=== PATIENT | female | born 1940 ===

== ENCOUNTER 2017-02-18 16:48 | Inpatient (IN) | payer MEDICARE, OTHER ==
[~2017-02-18] VITALS: Ht 165.1 cm; Wt 61.8 kg
[2017-02-18 18:43] VITALS: BP 168/81
[2017-02-18] MEDS ORDERED: CYCL1DRO OU (19:38)
[2017-02-18] MEDS ORDERED: POLY119P4 PO (19:38)
[2017-02-18] MEDS ORDERED: BISA5TAB4 PO (19:38)
[2017-02-18] MEDS ORDERED: ATOR10TA60 PO (19:38)
[2017-02-18] MEDS ORDERED: QUET50TA5 PO (19:38)
[2017-02-18] MEDS ORDERED: ASPI81TA50 PO (19:38)
[2017-02-18] MEDS ORDERED: FOLI0.4T2 PO (19:38)
[2017-02-18] MEDS ORDERED: MULT-658 PO (19:38)
[2017-02-18] MEDS ORDERED: OMEG-33 PO (19:38)
[2017-02-18] MEDS ORDERED: DONE10TA61 PO (19:38)
[2017-02-18] MEDS ORDERED: LINA290C PO (19:38)
[2017-02-18] MEDS ORDERED: CHOL10003 PO (19:38)
[2017-02-18] MEDS ORDERED: ACET325T9 PO (19:38)
[2017-02-18] MEDS ORDERED: CYAN500T PO (19:38)
[2017-02-18] MEDS ORDERED: MELA1TAB2 PO (19:38)
[2017-02-18] MEDS ORDERED: LOPE2TAB27 PO (19:38)
[2017-02-18] MEDS ORDERED: LEVO25TA4 PO (19:38)
[2017-02-18] MEDS ORDERED: ALPR0.254 PO (19:38)
[2017-02-18] MEDS ORDERED: CALC1TAB64 PO (19:38)
[2017-02-18] MEDS ORDERED: MAG HYDROX/AL HYDROX/SIMETH 30 ML ORAL.SUSP PO PRN (19:45)
[2017-02-18] MEDS ORDERED: ACETAMINOPHEN 325 MG TABLET PO PRN (19:45)
[2017-02-18] MEDS ORDERED: METHYL SALICYLATE/MENTHOL TOPICAL OINTMENT 29GM TUBE. TP PRN (19:45)
[2017-02-18] MEDS ORDERED: ALPRAZolam 0.25 MG TABLET PO PRN (19:45)
[2017-02-18] MEDS ORDERED: LOPERAMIDE 2 MG CAPSULE PO PRN (20:00)
[2017-02-18] MEDS ORDERED: BISACODYL TAB 5 MG TABLET.DR. PO PRN (20:00)
[2017-02-18] MEDS ORDERED: POLYETHYLENE GLYCOL 3350 255 GM POWDER. PO PRN (20:00)
[2017-02-18] MEDS: DONEPEZIL HCL 10 MG TABLET PO SCH (20:08)
[2017-02-18] MEDS: MELATONIN 3 MG TABLET PO SCH (20:09)
[2017-02-18] MEDS: cycloSPORINE 0.05% OPTH 1 DROP DROPERETTE OU SCH (20:09)
[2017-02-18] MEDS: ATORVASTATIN CALCIUM 10 MG TABLET. PO SCH (20:09)
[2017-02-18] MEDS: QUEtiapine 50 MG TABLET. PO SCH (20:09)
--- NOTE | 2017-02-18 23:21 | PDOC ---
Exam Alonso Demential Exam: Alonso Note: Please also refer to the separate dictated note~for this date of service dictated separately.~Patient seen individually. Discussed the patient with Nursing staff reviewed the chart.~Reviewed interim history and current functioning. Reviewed vital signs,~Labs/ Radiology~and current medications noted below. Continue current treatment with the changes noted in the dictated addendum note Assessment: Vital Signs: Vital Signs Date Time Temp Pulse Resp B/P (MAP) Pulse Ox O2 Delivery O2 Flow Rate FiO2 02/18/17 18:43 98.1 84 20 168/81 (110) 95 Room Air I&O Intake and Output 02/19/17 06:59 Intake Total 120 ml Balance 120 ml Intake Oral 120 ml Current Medications: Meds: Current Medications Acetaminophen (Tylenol) 650 mg PRN Q6HRS PRN PO PAIN / TEMP; Start 02/18/17 at 19:45 Multi-Ingredient Ointment (Analgesic [place]) 1 kevin PRN QID PRN TP MUSCLE PAIN; Start 02/18/17 at 19:45 Al Hydroxide/Mg Hydroxide (Mylanta Plus Xs) 15 ml PRN AFTMEALHC PRN PO DYSPEPSIA; Start 02/18/17 at 19:45 Magnesium Hydroxide (Milk Of Magnesia) 2,400 mg PRN QHS PRN PO CONSTIPATION; Start 02/18/17 at 19:45 Alprazolam (Xanax) 0.25 mg PRN TID PRN PO ANXIETY / AGITATION; Start 02/18/17 at 19:45 Donepezil HCl (Aricept) 10 mg QHS PO Last administered on 02/18/17 20:08; Start 02/18/17 at 21:00 Quetiapine Fumarate (SEROquel) 50 mg BID PO Last administered on 02/18/17 20:09 ; Start 02/18/17 at 21:00 Melatonin 9 mg QHS PO Last administered on 02/18/17 20:09; Start 02/18/17 at 21: 00 Olanzapine (ZyPREXA ZYDIS) 5 mg PRN Q2HR PRN PO Psych; Start 02/18/17 at 19:45 Aspirin (Aspirin Enteric Coated) 81 mg DAILY PO ; Start 02/19/17 at 09:00 Atorvastatin Calcium (Lipitor) 10 mg QHS PO Last administered on 02/18/17 20:09 ; Start 02/18/17 at 21:00 Bisacodyl (Dulcolax Tab) 10 mg PRN DAILY PRN PO CONSTIPATION; Start 02/18/17 at 20:00 Vitamin D (Vitamin D3) 1,000 unit DAILY PO ; Start 02/19/17 at 09:00 Cyclosporine (Restasis) 1 drop BID OU Last administered on 02/18/17 20:09; Start 02/18/17 at 21:00 Levothyroxine Sodium (Synthroid) 25 mcg DAILY07 PO ; Start 02/19/17 at 07:00 Polyethylene Glycol (miraLAX) 17 gm PRN DAILY PRN PO CONSTIPATION; Start at 20:00 Calcium/Vitamin D (Oscal D 500mg/ 200uts) 1 tab DAILY PO ; Start 02/19/17 at 09: 00 Cyanocobalamin (Vitamin B-12) 500 mcg DAILY PO ; Start 02/19/17 at 09:00 Folic Acid (Folic Acid) 0.5 mg DAILY PO ; Start 02/19/17 at 09:00 Non-Formulary Medication 290 mcg DAILYWBKFT PO ; Start 02/19/17 at 08:00; Status UNV Loperamide HCl (Imodium) 2 mg PRN TID PRN PO DIARRHEA; Start 02/18/17 at 20:00 Multivitamins/ Calcium (Thera-M Plus) 1 tab DAILY PO ; Start 02/19/17 at 09:00 Fish Oil (Fish Oil) 1,000 mg DAILY PO ; Start 02/19/17 at 09:00 Active Scripts Active Reported Levothyroxine Sodium 25 Mcg Tablet 25 Mcg PO DAILY07 Miralax (Polyethylene Glycol 3350) 119 Gm Powder 17 Gm PO PRN DAILY PRN Loperamide (Loperamide Hcl) 2 Mg Tablet 2 Mg PO PRN TID PRN Bisacodyl 5 Mg Tablet.dr 10 Mg PO PRN DAILY PRN Alprazolam 0.25 Mg Tablet 0.25 Mg PO PRN TID PRN Tylenol (Acetaminophen) 325 Mg Tablet 650 Mg PO PRN Q4HRS PRN Seroquel (Quetiapine Fumarate) 50 Mg Tablet 50 Mg PO BID [place] 3 1,000 Mg Softgel ([place]-3 Fatty Acids/Fish Oil) 1 Each Capsule 1,000 Mg PO DAILY Centrum Silver Tablet (Multivits-Min/Fa/Lycopene/Lut) 1 Each Tablet 1 Tab PO DAILY Melatonin 5 Mg Tablet (Melatonin/Pyridoxine) 1 Each Tablet 10 Mg PO QHS Linzess (Linaclotide) 290 Mcg Capsule 290 Mcg PO DAILYWBKFT Folic Acid 0.4 Mg Tablet 0.4 Mg PO DAILY Aricept (Donepezil Hcl) 10 Mg Tablet 10 Mg PO QHS Restasis (Cyclosporine) 1 Each Droperette 1 Drop OU BID Vitamin B-12 (Cyanocobalamin (Vitamin B-12)) 500 Mcg Tablet 500 Mcg PO DAILY Vitamin D3 (Cholecalciferol (Vitamin D3)) 1,000 Unit Tablet 1,000 Unit PO DAILY Calcium 600 + Vit D 400 Tablet (Calcium Carbonate/Vitamin D3) 1 Each Tablet 1 Tab PO DAILY Atorvastatin Calcium 10 Mg Tablet 10 Mg PO QHS Aspir-Low (Aspirin) 81 Mg Tablet. 81 Mg PO DAILY AURELIANO MCCAULEY MD Feb 18, 2017 23:21
[2017-02-19] MEDS: LEVOTHYROXINE 25 MCG TABLET. PO SCH (06:21)
[2017-02-19] MEDS ORDERED: POLYETHYLENE GLYCOL 3350 17 GM PACKET. PO PRN (07:15)
[2017-02-19 08:10] LABS: BASO # 0.1 x10^3/uL (0.0-0.2); BASO % 1 % (0-3); EOS # 0.2 x10^3/uL (0.0-0.7); EOS % 4 % (0-3); HEMATOCRIT 38.9 % (36.0-47.0); HEMOGLOBIN 12.8 g/dL (12.0-15.5); LYMPH % 16 % (24-48); MEAN CORPUSCULAR HEMOGLOBIN 34 pg (25-35); MEAN CORPUSCULAR HGB CONC 33 g/dL (31-37); MEAN CORPUSCULAR VOLUME 103 fL (79-100); MONO # 0.7 x10^3/uL (0.0-1.1); MONO % 10 % (0-9); NEUT # 4.7 x10^3uL (1.8-7.7); NEUT % 70 % (31-73); PLATELET COUNT 298 x10^3/uL (140-400); RED BLOOD COUNT 3.78 x10^6/uL (3.50-5.40); RED CELL DISTRIBUTION WIDTH 12.6 % (11.5-14.5); WHITE BLOOD COUNT 6.7 x10^3/uL (4.0-11.0)
[2017-02-19 08:30] LABS: ALBUMIN 3.7 g/dL (3.4-5.0); CALCIUM 8.7 mg/dL (8.5-10.1); CREATININE 0.8 mg/dL (0.6-1.0); GFR 69.4; MAGNESIUM 2.1 mg/dL (1.8-2.4); POTASSIUM 3.7 mmol/L (3.5-5.1); TOTAL BILIRUBIN 0.4 mg/dL (0.2-1.0); TOTAL PROTEIN 7.3 g/dL (6.4-8.2)
[2017-02-19] MEDS: FOLIC ACID 1 MG TABLET PO SCH (08:57)
[2017-02-19] MEDS: QUEtiapine 50 MG TABLET. PO SCH ×2 (08:57→21:04)
[2017-02-19 09:29] VITALS: BP 174/72
[2017-02-19] MEDS: OMEGA-3 FATTY ACIDS/FISH OIL 1,000 MG CAPSULE. PO SCH (09:47)
[2017-02-19] MEDS: cycloSPORINE 0.05% OPTH 1 DROP DROPERETTE OU SCH ×2 (09:47→21:04)
[2017-02-19] MEDS: LINACLOTIDE 145 MCG CAPSULE. PO SCH (09:47)
[2017-02-19] MEDS: ASPIRIN ENTERIC COATED 81 MG TABLET.DR. PO SCH (09:47)
[2017-02-19] MEDS: CALCIUM CARB/VIT D3 500/200 TABLET PO SCH (09:47)
[2017-02-19] MEDS: MULTIVITAMIN with MINERAL TABLET. PO SCH (09:47)
[2017-02-19] MEDS: CHOLECALCIFEROL (VITAMIN D3) 1,000 UNIT TABLET PO SCH (09:48)
[2017-02-19] MEDS: CYANOCOBALAMIN (VITAMIN B-12) 250 MCG TABLET PO SCH (09:48)
[2017-02-19 10:10] LABS: THYROID STIM HORMONE (TSH) 10.023 uIU/mL (0.358-3.740)
[2017-02-19 11:02] VITALS: BP 149/78
[2017-02-19 12:09] LABS: T3 TOTAL 101 ng/dL (71-180); THYROXINE 7.8 ug/dL (4.5-12.0)
[2017-02-19 15:48] VITALS: BP 180/86
[2017-02-19] MEDS: MELATONIN 3 MG TABLET PO SCH (21:04)
[2017-02-19] MEDS: DONEPEZIL HCL 10 MG TABLET PO SCH (21:04)
[2017-02-19] MEDS: ATORVASTATIN CALCIUM 10 MG TABLET. PO SCH (21:04)
--- NOTE | 2017-02-19 21:50 | PDOC ---
Exam Alonso Demential Exam: Alonso Note: Please also refer to the separate dictated note~for this date of service dictated separately.~Patient seen individually. Discussed the patient with Nursing staff reviewed the chart.~Reviewed interim history and current functioning. Reviewed vital signs,~Labs/ Radiology~and current medications noted below. Continue current treatment with the changes noted in the dictated addendum note Assessment: Vital Signs: Vital Signs Date Time Temp Pulse Resp B/P (MAP) Pulse Ox O2 Delivery O2 Flow Rate FiO2 02/19/17 15:48 96.9 95 22 180/86 (117) 97 02/18/17 18:43 Room Air I&O Intake and Output 02/20/17 06:59 Intake Total 720 ml Balance 720 ml Intake Oral 720 ml Labs: Laboratory Tests Test 02/19/17 06:40 White Blood Count 6.7 x10^3/uL (4.0-11.0) Red Blood Count 3.78 x10^6/uL (3.50-5.40) Hemoglobin 12.8 g/dL (12.0-15.5) Hematocrit 38.9 % (36.0-47.0) Mean Corpuscular Volume 103 fL (79-100) H Mean Corpuscular Hemoglobin 34 pg (25-35) Mean Corpuscular Hemoglobin Concent 33 g/dL (31-37) Red Cell Distribution Width 12.6 % (11.5-14.5) Platelet Count 298 x10^3/uL (140-400) Neutrophils (%) (Auto) 70 % (31-73) Lymphocytes (%) (Auto) 16 % (24-48) L Monocytes (%) (Auto) 10 % (0-9) H Eosinophils (%) (Auto) 4 % (0-3) H Basophils (%) (Auto) 1 % (0-3) Neutrophils # (Auto) 4.7 x10^3uL (1.8-7.7) Lymphocytes # (Auto) 1.0 x10^3/uL (1.0-4.8) Monocytes # (Auto) 0.7 x10^3/uL (0.0-1.1) Eosinophils # (Auto) 0.2 x10^3/uL (0.0-0.7) Basophils # (Auto) 0.1 x10^3/uL (0.0-0.2) Sodium Level 135 mmol/L (136-145) L Potassium Level 3.7 mmol/L (3.5-5.1) Chloride Level 99 mmol/L (98-107) Carbon Dioxide Level 30 mmol/L (21-32) Anion Gap 6 (6-14) Blood Urea Nitrogen 17 mg/dL (7-20) Creatinine 0.8 mg/dL (0.6-1.0) Estimated GFR (Cockcroft-Gault) 69.4 BUN/Creatinine Ratio 21 (6-20) H Glucose Level 96 mg/dL (70-99) Calcium Level 8.7 mg/dL (8.5-10.1) Magnesium Level 2.1 mg/dL (1.8-2.4) Iron Level 54 ug/dL (50-170) Total Iron Binding Capacity 384 ug/dL (250-450) Iron Saturation 14 % (15-34) L Total Bilirubin 0.4 mg/dL (0.2-1.0) Aspartate Amino Transferase (AST) 23 U/L (15-37) Alanine Aminotransferase (ALT) 20 U/L (14-59) Alkaline Phosphatase 71 U/L (46-116) Total Protein 7.3 g/dL (6.4-8.2) Albumin 3.7 g/dL (3.4-5.0) Albumin/Globulin Ratio 1.0 (1.0-1.7) Triglycerides Level 73 mg/dL (0-150) Cholesterol Level 214 mg/dL (0-200) H LDL Cholesterol, Calculated 77 mg/dL (0-100) VLDL Cholesterol, Calculated 14 mg/dL (0-40) Non-HDL Cholesterol Calculated 91 mg/dL (0-129) HDL Cholesterol 123 mg/dL (40-60) H Cholesterol/HDL Ratio 1.0 25-Hydroxy Vitamin D Total Pending Thyroid Stimulating Hormone (TSH) 10.023 uIU/mL (0.358-3.740) Thyroxine (T4) 7.8 ug/dL (4.5-12.0) Total Triiodothyronine (TT3) 101 ng/dL (71-180) RPR Titer Additional Testing Pending Current Medications: Meds: Current Medications Acetaminophen (Tylenol) 650 mg PRN Q6HRS PRN PO PAIN / TEMP; Start 02/18/17 at 19:45 Multi-Ingredient Ointment (Analgesic [place]) 1 kevin PRN QID PRN TP MUSCLE PAIN; Start 02/18/17 at 19:45 Al Hydroxide/Mg Hydroxide (Mylanta Plus Xs) 15 ml PRN AFTMEALHC PRN PO DYSPEPSIA; Start 02/18/17 at 19:45 Magnesium Hydroxide (Milk Of Magnesia) 2,400 mg PRN QHS PRN PO CONSTIPATION; Start 02/18/17 at 19:45 Alprazolam (Xanax) 0.25 mg PRN TID PRN PO ANXIETY / AGITATION; Start 02/18/17 at 19:45 Donepezil HCl (Aricept) 10 mg QHS PO Last administered on 02/19/17 21:04; Start 02/18/17 at 21:00 Quetiapine Fumarate (SEROquel) 50 mg BID PO Last administered on 02/19/17 21:04 ; Start 02/18/17 at 21:00 Melatonin 9 mg QHS PO Last administered on 02/19/17 21:04; Start 02/18/17 at 21: 00 Olanzapine (ZyPREXA ZYDIS) 5 mg PRN Q2HR PRN PO Psych; Start 02/18/17 at 19:45 Aspirin (Aspirin Enteric Coated) 81 mg DAILY PO ; Start 02/19/17 at 09:00 Atorvastatin Calcium (Lipitor) 10 mg QHS PO Last administered on 02/19/17 21:04 ; Start 02/18/17 at 21:00 Bisacodyl (Dulcolax Tab) 10 mg PRN DAILY PRN PO CONSTIPATION; Start 02/18/17 at 20:00 Vitamin D (Vitamin D3) 1,000 unit DAILY PO ; Start 02/19/17 at 09:00 Cyclosporine (Restasis) 1 drop BID OU Last administered on 02/19/17 21:04; Start 02/18/17 at 21:00 Levothyroxine Sodium (Synthroid) 25 mcg DAILY07 PO Last administered on 06:21; Start 02/19/17 at 07:00 Polyethylene Glycol (miraLAX) 17 gm PRN DAILY PRN PO CONSTIPATION; Start at 20:00; Stop 02/19/17 at 07:15; Status DC Calcium/Vitamin D (Oscal D 500mg/ 200uts) 1 tab DAILY PO ; Start 02/19/17 at 09: 00 Cyanocobalamin (Vitamin B-12) 500 mcg DAILY PO ; Start 02/19/17 at 09:00 Folic Acid (Folic Acid) 0.5 mg DAILY PO Last administered on 02/19/17t 08:57; Start 02/19/17 at 09:00 Non-Formulary Medication 290 mcg DAILYWBKFT PO ; Start 02/19/17 at 08:00; Status UNV Loperamide HCl (Imodium) 2 mg PRN TID PRN PO DIARRHEA; Start 02/18/17 at 20:00 Multivitamins/ Calcium (Thera-M Plus) 1 tab DAILY PO ; Start 02/19/17 at 09:00 Fish Oil (Fish Oil) 1,000 mg DAILY PO ; Start 02/19/17 at 09:00 Polyethylene Glycol (miraLAX) 17 gm PRN DAILY PRN PO CONSTIPATION; Start at 07:15 Active Scripts Active Reported Levothyroxine Sodium 25 Mcg Tablet 25 Mcg PO DAILY07 Miralax (Polyethylene Glycol 3350) 119 Gm Powder 17 Gm PO PRN DAILY PRN Loperamide (Loperamide Hcl) 2 Mg Tablet 2 Mg PO PRN TID PRN Bisacodyl 5 Mg Tablet.dr 10 Mg PO PRN DAILY PRN Alprazolam 0.25 Mg Tablet 0.25 Mg PO PRN TID PRN Tylenol (Acetaminophen) 325 Mg Tablet 650 Mg PO PRN Q4HRS PRN Seroquel (Quetiapine Fumarate) 50 Mg Tablet 50 Mg PO BID [place] 3 1,000 Mg Softgel ([place]-3 Fatty Acids/Fish Oil) 1 Each Capsule 1,000 Mg PO DAILY Centrum Silver Tablet (Multivits-Min/Fa/Lycopene/Lut) 1 Each Tablet 1 Tab PO DAILY Melatonin 5 Mg Tablet (Melatonin/Pyridoxine) 1 Each Tablet 10 Mg PO QHS Linzess (Linaclotide) 290 Mcg Capsule 290 Mcg PO DAILYWBKFT Folic Acid 0.4 Mg Tablet 0.4 Mg PO DAILY Aricept (Donepezil Hcl) 10 Mg Tablet 10 Mg PO QHS Restasis (Cyclosporine) 1 Each Droperette 1 Drop OU BID Vitamin B-12 (Cyanocobalamin (Vitamin B-12)) 500 Mcg Tablet 500 Mcg PO DAILY Vitamin D3 (Cholecalciferol (Vitamin D3)) 1,000 Unit Tablet 1,000 Unit PO DAILY Calcium 600 + Vit D 400 Tablet (Calcium Carbonate/Vitamin D3) 1 Each Tablet 1 Tab PO DAILY Atorvastatin Calcium 10 Mg Tablet 10 Mg PO QHS Aspir-Low (Aspirin) 81 Mg Tablet. 81 Mg PO DAILY AURELIANO MCCAULEY MD Feb 19, 2017 21:50
[2017-02-20] MEDS: LINACLOTIDE 145 MCG CAPSULE. PO SCH (05:41)
[2017-02-20] MEDS: LEVOTHYROXINE 25 MCG TABLET. PO SCH (05:41)
[2017-02-20 06:26] VITALS: BP 147/74
[2017-02-20] MEDS: ASPIRIN ENTERIC COATED 81 MG TABLET.DR. PO SCH (07:34)
[2017-02-20] MEDS: OMEGA-3 FATTY ACIDS/FISH OIL 1,000 MG CAPSULE. PO SCH (07:34)
[2017-02-20] MEDS: cycloSPORINE 0.05% OPTH 1 DROP DROPERETTE OU SCH ×2 (07:34→20:19)
[2017-02-20] MEDS: CALCIUM CARB/VIT D3 500/200 TABLET PO SCH (07:34)
[2017-02-20] MEDS: QUEtiapine 50 MG TABLET. PO SCH ×2 (07:34→20:19)
[2017-02-20] MEDS: FOLIC ACID 1 MG TABLET PO SCH (07:34)
[2017-02-20] MEDS: MULTIVITAMIN with MINERAL TABLET. PO SCH (07:34)
[2017-02-20] MEDS: CHOLECALCIFEROL (VITAMIN D3) 1,000 UNIT TABLET PO SCH (07:35)
[2017-02-20] MEDS: CYANOCOBALAMIN (VITAMIN B-12) 250 MCG TABLET PO SCH (07:35)
--- NOTE | 2017-02-20 11:14 | RAD ---
CT head without contrast History: Change in mental status. Comparison: None. Procedure: Axial images are obtained of the head from the skull base through the vertex without IV contrast. Findings: Mild bilateral periventricular white matter hypodensities likely chronic small vessel ischemic disease. The ventricles and sulci are normal for the patient's age. No mass-effect, intracranial mass, midline shift, hemorrhage or obvious acute infarction is identified. Basilar cisterns are patent. Bone windows demonstrate no significant calvarial abnormality. The visualized paranasal sinuses appear clear. Impression: 1. No acute intracranial process. PQRS Compliance Statement: One or more of the following individualized dose reduction techniques were utilized for this examination: 1. Automated exposure control 2. Adjustment of the mA and/or kV according to patient size 3. Use of iterative reconstruction technique faint
--- NOTE | 2017-02-20 14:02 | CONS ---
DATE OF CONSULTATION: 02/19/2017 REASON FOR CONSULTATION: Medical management. HISTORY OF PRESENT ILLNESS: The patient is a 76-year-old female patient, who is a resident at the [facility]. Apparently, her children state that she has been making threatening remarks towards them as well as threatening to harm herself. She has been going in and out of these apparent psychotic phases. She feels like she has been locked down at [facility], has been unable to leave the facility ____ she was having some driving problems. She has also been making some costly financial mistakes according to the kids. Her [id number], who brought her here, stated that she has felt like she always has had some underlying psychiatric illness for her entire life and has never been evaluated for this. She apparently was seen at her primary care physician's and she ended up in the Emergency Room of [facility] where she was evaluated and was found to have hyponatremia with serum sodium of 128. She waxed and waned between being completely appropriate and respectful in her communication versus being very angry and threatening. She has had extensive investigation there and was found to have hyponatremia as well as borderline psychotic behavior, superimposed on dementia. She did express some desire to harm herself and has made threatening commands towards her family and exhibited some paranoid thoughts and feels like her kids are conspiring against her and eventually was admitted to this unit for inpatient psychiatric stabilization. PAST MEDICAL HISTORY: Significant for dementia, hyperlipidemia, and anxiety together with low back pain. PAST SURGICAL HISTORY: Significant for knee replacement, hip arthroscopic surgery, laparotomy for an ectopic , cataract extraction, tubal ligation, and biopsy of the breast. FAMILY HISTORY: Her father of lung cancer, sister of some type of cancer, and brother of lung cancer. SOCIAL HISTORY: She does not drink or smoke any more. She stopped smoking at the age of 65. She used to drink 1 or 2 alcoholic beverages a month, no longer drinks. She is . She has not ever lived in the same house with her . They each kept their own home after they got and would spend time together during the day and have meals together. ALLERGIES: She has no known drug allergies. MEDICATIONS: She is currently on following medications: She is on acetaminophen 650 mg every 4 hours; aspirin 81 mg once a day; atorvastatin calcium 10 mg at bedtime; bisacodyl 10 mg p.o. daily p.r.n. for constipation; calcium carbonate with vitamin D 1 tablet daily; cholecalciferol;vitamin D 1000 International Units daily; cyanocobalamin 500 mcg tablet once a day; cyclosporine/Restasis 1 drop to both eyes twice a day; Aricept 10 mg at bedtime; folic acid 0.4 mg daily; levothyroxine sodium 25 mcg once a day; linaclotide, Linzess 290 mcg daily; loperamide 2 mg three times a day; melatonin/pyridoxine 5 mg at bedtime; Centrum Silver 1 tablet once a day; omega-3 fatty acid 1000 mg daily; polyethylene glycol 17 g daily p.r.n. for constipation; and Seroquel 50 mg p.o. b.i.d. PHYSICAL EXAMINATION: GENERAL: When I saw her, she looked well and was clearly in no apparent respiratory distress. She was pale, cachectic, but no jaundice, cyanosis, or thyromegaly. No jugular venous distension. No limb edema. VITAL SIGNS: Her heart rate was 84, blood pressure was 168/81, temperature was 98, respiratory rate was 20, and oxygen saturation was 95%. HEAD, EYES, EARS, NOSE, AND THROAT: Normocephalic, atraumatic. NECK: Supple. HEART: Showed normal first and second sounds. No gallop, rub, or murmur. CHEST: Clear to auscultation. No crepitation or rhonchi. ABDOMEN: Distended, soft, nontender. No guarding or rigidity. No organomegaly. Hernial orifices intact. Bowel sounds normal. NEUROLOGIC: She is awake, alert and oriented to time, place and person. Her cranial nerves are intact. EXTREMITIES: She moves extremities without difficulty. She ambulates without assistance or assistive devices. LABORATORY DATA: Showed a white cell count of 6700, hemoglobin 12.8, hematocrit 38, MCV 103, and platelet count of 298,000 with normal manual differential. Her chemistry showed a serum sodium 135, potassium 3.7, chloride 99, bicarbonate 30, anion gap of 6, BUN 17, creatinine 0.8, estimated GFR was 69 mL per minute. Her glucose was 96, calcium was 8.7, and magnesium 2.1. Serum iron was 54, TIBC was ____ and percent saturation was only 14%. Total bilirubin, AST, ALT, alkaline phosphatase were normal. Total protein 7.3, albumin 3.7. Her triglycerides were 73, total cholesterol was 114, LDL was 77, VLDL was 14, and HDL cholesterol was 123, ratio was 1. Her TSH was 7.023. However, T4 was 7.8 and total T3 was 101. Her vitamin 25-hydroxy vitamin D, still pending at the time of this dictation. IMPRESSION: In summary, this is a 76-year-old female patient, who was admitted in the account of making threatening statements towards the family and self-harm, with mood waxing and waning, with increased paranoia in the background of dementia with delusions. She is here for inpatient psychiatric stabilization. Medically, she has multiple medical problems including hyperlipidemia, chronic constipation, and hypothyroidism. All her vital signs seem to be stable, although her blood pressure somewhat seemed to be slightly elevated. Her lab work generally within acceptable range except that her TSH was high, although the total T4 and total T3 are all within normal range. She is already on 25 mcg of Synthroid. So, all in all, she seemed to be medically stable. I will obviously review all the lab work that are still pending and make any necessary recommendation. Thank you, Dr. Wisdom for allowing me to participate in the care of this patient. YURIDIA KELLER MD DR: YEN/harinder JOB#: [id number] / [id number]
--- NOTE | 2017-02-20 14:19 | HP ---
ADMIT DATE: 02/18/2017 This is a late entry for date of service 02/18/2017 and covers elements not covered in my initial note of 02/18/2017. I met with the patient the evening of 02/18/2017 for this evaluation. IDENTIFYING DATA: The patient is a 76-year-old female, referred to us from [facility] by Dr. Elian Davila, her primary care physician on account of worsening confusion, short-term memory deficits, making threatening statements towards family and self-harm statements. She has had marked mood vacillations, "waxing and waning" with increased paranoia. She has failed outpatient psychiatric interventions. CHIEF COMPLAINT: "I came here earlier today. I don't know why they brought me here. There is nothing wrong with me. I need to leave." The patient is being admitted by her co-DPOAs, Latasha Fisher and Gregorio. HISTORY OF PRESENT ILLNESS: Reportedly, the patient had been living at home and gradually getting more forgetful, needing extra help and then was transferred to the assisted living at [facility]. Over the last several days while at the [facility], she has been increasingly anxious, agitated, paranoid, forgetful, threatening to hurt herself and family members. She has had sleep and appetite changes. Behaviors were deemed dangerous. She was sent to the Emergency Room at [facility], evaluated there and then referred to us for inpatient psychiatric interventions. The patient minimizes most of the problems. She does admit to mood swings, but relates this to the psychosocial stressors. She talked at length about her social situation that she her second sometime but they lived in their own houses, met each other every day until she moved to the [facility] living. No alcohol or drug abuse history. PAST PSYCHIATRIC HISTORY: As above. MEDICAL HISTORY: Positive for chronic back pains, spondylosis, chronic constipation, hard of hearing, hyperlipidemia, joint pain, hip and knee pain, knee replacement in 05/2010, right knee in 2008, mitral valve prolapse, nocturia, sinus problems, urinary urgency. She does wear glasses, history of colon blockage in 05/2012, breast biopsy in 1969, hysterectomy with oophorectomy, ectopic , bilateral cataracts, hip arthroplasty, tubal ligation, hypothyroidism. CODE STATUS: DNR. DRUG ALLERGIES: Negative. CURRENT PSYCHOTROPICS: She is on B12 oral supplements, Aricept 10 mg a day, melatonin 9 mg at bedtime, Zyprexa was added p.r.n. at admission and she is on Seroquel 50 mg. CODE STATUS: DNR. FAMILY HISTORY: Noncontributory. SOCIAL HISTORY: No history of alcohol, drug abuse, physical, sexual or elder abuse. She is not known to be perpetrator. 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 She re- after her first . No alcohol or drug abuse history. REACTION TO HOSPITALIZATION: The patient not fully accepting it. Denies any problems she has had resulting in the hospitalization. ASSETS: Reasonably healthy despite the above, supportive family. MENTAL STATUS EXAMINATION: The patient was seen individually at length the evening 02/18/2017. She knew she was admitted at the hospital earlier in the day on 02/18/2017. Speech is coherent, rapid. She is quite emotional, labile initially, very expressive almost dramatic at times, but as we sat and met for an extended period of time, she seemed much calmer at the end, still not full agreeing to the hospitalization. Speech is coherent, abstraction fair, computation impaired, language function intact. She was aware of the year, but not to the month. No active suicidal or homicidal ideation. Mood is labile, somewhat dysphoric, anxious. Affect is mood congruent. REVIEW OF SYSTEMS: No CV, , pulmonary, eye, ENT system symptoms on review. IMPRESSION: Major neurocognitive disorder, early Alzheimer, vascular with depression; anxiety disorder, unspecified; major depressive disorder with psychotic features; impulse control disorder, unspecified; bipolar 1 disorder, mixed. Rest as above. PLAN: Admit to the geropsychiatry unit at [facility]. I will see the patient daily individually from a psychiatric standpoint, medical followup per Dr. Godoy/Dr. Torres. Check a CT head if not done recently. Continue current psychotropics, observe baseline, then adjust as clinically indicated. MAN Malena MCCAULEY MD DR: CORY/harinder JOB#: [id number] / [id number]
[2017-02-20 15:50] VITALS: BP 153/81
[2017-02-20 15:52] VITALS: BP 146/72
[2017-02-20] MEDS: DONEPEZIL HCL 10 MG TABLET PO SCH (20:19)
[2017-02-20] MEDS: ATORVASTATIN CALCIUM 10 MG TABLET. PO SCH (20:19)
[2017-02-20] MEDS: MELATONIN 3 MG TABLET PO SCH (20:19)
--- NOTE | 2017-02-20 22:46 | PDOC ---
Exam Alonso Demential Exam: Alonso Note: Please also refer to the separate dictated note~for this date of service dictated separately.~Patient seen individually. Discussed the patient with Nursing staff reviewed the chart.~Reviewed interim history and current functioning. Reviewed vital signs,~Labs/ Radiology~and current medications noted below. Continue current treatment with the changes noted in the dictated addendum note Assessment: Vital Signs: Vital Signs Date Time Temp Pulse Resp B/P (MAP) Pulse Ox O2 Delivery O2 Flow Rate FiO2 02/20/17 15:52 97.8 73 18 146/72 (96) 97 02/18/17 18:43 Room Air I&O Intake and Output 02/21/17 06:59 Intake Total 840 ml Balance 840 ml Intake Oral 840 ml # Voids 2 # Bowel Movements 1 Current Medications: Meds: Current Medications Acetaminophen (Tylenol) 650 mg PRN Q6HRS PRN PO PAIN / TEMP; Start 02/18/17 at 19:45 Multi-Ingredient Ointment (Analgesic [place]) 1 kevin PRN QID PRN TP MUSCLE PAIN; Start 02/18/17 at 19:45 Al Hydroxide/Mg Hydroxide (Mylanta Plus Xs) 15 ml PRN AFTMEALHC PRN PO DYSPEPSIA; Start 02/18/17 at 19:45 Magnesium Hydroxide (Milk Of Magnesia) 2,400 mg PRN QHS PRN PO CONSTIPATION; Start 02/18/17 at 19:45 Alprazolam (Xanax) 0.25 mg PRN TID PRN PO ANXIETY / AGITATION; Start 02/18/17 at 19:45 Donepezil HCl (Aricept) 10 mg QHS PO Last administered on 02/20/17 20:19; Start 02/18/17 at 21:00 Quetiapine Fumarate (SEROquel) 50 mg BID PO Last administered on 02/20/17 20:19 ; Start 02/18/17 at 21:00 Melatonin 9 mg QHS PO Last administered on 02/20/17 20:19; Start 02/18/17 at 21: 00 Olanzapine (ZyPREXA ZYDIS) 5 mg PRN Q2HR PRN PO Psych; Start 02/18/17 at 19:45 Aspirin (Aspirin Enteric Coated) 81 mg DAILY PO Last administered on 02/20/17 07:34; Start 02/19/17 at 09:00 Atorvastatin Calcium (Lipitor) 10 mg QHS PO Last administered on 02/20/17 20:19 ; Start 02/18/17 at 21:00 Bisacodyl (Dulcolax Tab) 10 mg PRN DAILY PRN PO CONSTIPATION; Start 02/18/17 at 20:00 Vitamin D (Vitamin D3) 1,000 unit DAILY PO Last administered on 02/20/17 07:35 ; Start 02/19/17 at 09:00 Cyclosporine (Restasis) 1 drop BID OU Last administered on 02/20/17 20:19; Start 02/18/17 at 21:00 Levothyroxine Sodium (Synthroid) 25 mcg DAILY07 PO Last administered on 05:41; Start 02/19/17 at 07:00 Polyethylene Glycol (miraLAX) 17 gm PRN DAILY PRN PO CONSTIPATION; Start at 20:00; Stop 02/19/17 at 07:15; Status DC Calcium/Vitamin D (Oscal D 500mg/ 200uts) 1 tab DAILY PO Last administered on 07:34; Start 02/19/17 at 09:00 Cyanocobalamin (Vitamin B-12) 500 mcg DAILY PO Last administered on 02/20/17 07 :35; Start 02/19/17 at 09:00 Folic Acid (Folic Acid) 0.5 mg DAILY PO Last administered on 02/20/17 07:34; Start 02/19/17 at 09:00 Non-Formulary Medication 290 mcg DAILYWBKFT PO ; Start 02/19/17 at 08:00; Status UNV Loperamide HCl (Imodium) 2 mg PRN TID PRN PO DIARRHEA; Start 02/18/17 at 20:00 Multivitamins/ Calcium (Thera-M Plus) 1 tab DAILY PO Last administered on 07:34; Start 02/19/17 at 09:00 Fish Oil (Fish Oil) 1,000 mg DAILY PO Last administered on 02/20/17 07:34; Start 02/19/17 at 09:00 Polyethylene Glycol (miraLAX) 17 gm PRN DAILY PRN PO CONSTIPATION; Start at 07:15 Active Scripts Active Reported Levothyroxine Sodium 25 Mcg Tablet 25 Mcg PO DAILY07 Miralax (Polyethylene Glycol 3350) 119 Gm Powder 17 Gm PO PRN DAILY PRN Loperamide (Loperamide Hcl) 2 Mg Tablet 2 Mg PO PRN TID PRN Bisacodyl 5 Mg Tablet.dr 10 Mg PO PRN DAILY PRN Alprazolam 0.25 Mg Tablet 0.25 Mg PO PRN TID PRN Tylenol (Acetaminophen) 325 Mg Tablet 650 Mg PO PRN Q4HRS PRN Seroquel (Quetiapine Fumarate) 50 Mg Tablet 50 Mg PO BID [place] 3 1,000 Mg Softgel ([place]-3 Fatty Acids/Fish Oil) 1 Each Capsule 1,000 Mg PO DAILY Centrum Silver Tablet (Multivits-Min/Fa/Lycopene/Lut) 1 Each Tablet 1 Tab PO DAILY Melatonin 5 Mg Tablet (Melatonin/Pyridoxine) 1 Each Tablet 10 Mg PO QHS Linzess (Linaclotide) 290 Mcg Capsule 290 Mcg PO DAILYWBKFT Folic Acid 0.4 Mg Tablet 0.4 Mg PO DAILY Aricept (Donepezil Hcl) 10 Mg Tablet 10 Mg PO QHS Restasis (Cyclosporine) 1 Each Droperette 1 Drop OU BID Vitamin B-12 (Cyanocobalamin (Vitamin B-12)) 500 Mcg Tablet 500 Mcg PO DAILY Vitamin D3 (Cholecalciferol (Vitamin D3)) 1,000 Unit Tablet 1,000 Unit PO DAILY Calcium 600 + Vit D 400 Tablet (Calcium Carbonate/Vitamin D3) 1 Each Tablet 1 Tab PO DAILY Atorvastatin Calcium 10 Mg Tablet 10 Mg PO QHS Aspir-Low (Aspirin) 81 Mg Tablet. 81 Mg PO DAILY AURELIANO MCCAULEY MD Feb 20, 2017 22:46
[2017-02-21 00:06] LABS: HEMOGLOBIN A1C 5.4 % (4.8-5.6)
--- NOTE | 2017-02-21 00:06 | PN ---
DATE: 02/19/2017 This late entry, 02/19/2017, covers elements not covered in my initial note. I met with the patient evening of 02/19/2017. The patient was quite labile in her mood the previous evening. Psychotic, felt people were watching her, kids were stealing money, frequently questioning the reason of her admission, all of this processed with her several times. REVIEW OF SYSTEMS: No CV, , pulmonary, eye, ENT system symptoms on review. Reliability poor. MENTAL STATUS EXAM: Oriented to herself and situation. Speech is coherent, abstraction fair, computation impaired, language function intact, attention span short. Mood and affect still somewhat anxious, labile. No suicidal or homicidal ideation. LABORATORY DATA: Reviewed. IMPRESSION: Unchanged from initial note. PLAN: Continue current psychotropics. Adjust further as clinically indicated. MAN Malena MCCAULEY MD DR: CORY/harinder JOB#: [id number] / [id number]
[2017-02-21] MEDS: LEVOTHYROXINE 25 MCG TABLET. PO SCH (06:13)
[2017-02-21] MEDS: LINACLOTIDE 145 MCG CAPSULE. PO SCH (06:13)
[2017-02-21 06:35] VITALS: BP 144/81
[2017-02-21] MEDS: OMEGA-3 FATTY ACIDS/FISH OIL 1,000 MG CAPSULE. PO SCH (08:43)
[2017-02-21] MEDS: QUEtiapine 50 MG TABLET. PO SCH ×2 (08:43→20:07)
[2017-02-21] MEDS: cycloSPORINE 0.05% OPTH 1 DROP DROPERETTE OU SCH ×2 (08:43→20:07)
[2017-02-21] MEDS: CHOLECALCIFEROL (VITAMIN D3) 1,000 UNIT TABLET PO SCH (08:44)
[2017-02-21] MEDS: ASPIRIN ENTERIC COATED 81 MG TABLET.DR. PO SCH (08:44)
[2017-02-21] MEDS: CALCIUM CARB/VIT D3 500/200 TABLET PO SCH (08:44)
[2017-02-21] MEDS: MULTIVITAMIN with MINERAL TABLET. PO SCH (08:44)
[2017-02-21] MEDS: CYANOCOBALAMIN (VITAMIN B-12) 250 MCG TABLET PO SCH (08:44)
[2017-02-21] MEDS: FOLIC ACID 1 MG TABLET PO SCH (08:44)
[2017-02-21 17:30] VITALS: BP 160/84
--- NOTE | 2017-02-21 19:34 | PDOC ---
Exam Alonso Demential Exam: Alonso Note: Please also refer to the separate dictated note~for this date of service dictated separately.~Patient seen individually. Discussed the patient with Nursing staff reviewed the chart.~Reviewed interim history and current functioning. Reviewed vital signs,~Labs/ Radiology~and current medications noted below. Continue current treatment with the changes noted in the dictated addendum note Assessment: Vital Signs: Vital Signs Date Time Temp Pulse Resp B/P (MAP) Pulse Ox O2 Delivery O2 Flow Rate FiO2 02/21/17 17:30 98.4 82 18 160/84 (109) 97 Room Air I&O Intake and Output 02/22/17 07:00 Intake Total 1380 ml Balance 1380 ml Intake Oral 1380 ml Current Medications: Meds: Current Medications Acetaminophen (Tylenol) 650 mg PRN Q6HRS PRN PO PAIN / TEMP; Start 02/18/17 at 19:45 Multi-Ingredient Ointment (Analgesic [place]) 1 kevin PRN QID PRN TP MUSCLE PAIN; Start 02/18/17 at 19:45 Al Hydroxide/Mg Hydroxide (Mylanta Plus Xs) 15 ml PRN AFTMEALHC PRN PO DYSPEPSIA; Start 02/18/17 at 19:45 Magnesium Hydroxide (Milk Of Magnesia) 2,400 mg PRN QHS PRN PO CONSTIPATION; Start 02/18/17 at 19:45 Alprazolam (Xanax) 0.25 mg PRN TID PRN PO ANXIETY / AGITATION; Start 02/18/17 at 19:45 Donepezil HCl (Aricept) 10 mg QHS PO Last administered on 02/20/17 20:19; Start 02/18/17 at 21:00 Quetiapine Fumarate (SEROquel) 50 mg BID PO Last administered on 02/21/17 08:43 ; Start 02/18/17 at 21:00 Melatonin 9 mg QHS PO Last administered on 02/20/17 20:19; Start 02/18/17 at 21: 00 Olanzapine (ZyPREXA ZYDIS) 5 mg PRN Q2HR PRN PO Psych; Start 02/18/17 at 19:45 Aspirin (Aspirin Enteric Coated) 81 mg DAILY PO Last administered on 02/21/17 08:44; Start 02/19/17 at 09:00 Atorvastatin Calcium (Lipitor) 10 mg QHS PO Last administered on 02/20/17 20:19 ; Start 02/18/17 at 21:00 Bisacodyl (Dulcolax Tab) 10 mg PRN DAILY PRN PO CONSTIPATION; Start 02/18/17 at 20:00 Vitamin D (Vitamin D3) 1,000 unit DAILY PO Last administered on 02/21/17 08:44 ; Start 02/19/17 at 09:00 Cyclosporine (Restasis) 1 drop BID OU Last administered on 02/21/17 08:43; Start 02/18/17 at 21:00 Levothyroxine Sodium (Synthroid) 25 mcg DAILY07 PO Last administered on 06:13; Start 02/19/17 at 07:00; Stop 02/21/17 at 15:36; Status DC Polyethylene Glycol (miraLAX) 17 gm PRN DAILY PRN PO CONSTIPATION; Start at 20:00; Stop 02/19/17 at 07:15; Status DC Calcium/Vitamin D (Oscal D 500mg/ 200uts) 1 tab DAILY PO Last administered on 08:44; Start 02/19/17 at 09:00 Cyanocobalamin (Vitamin B-12) 500 mcg DAILY PO Last administered on 02/21/17 08 :44; Start 02/19/17 at 09:00 Folic Acid (Folic Acid) 0.5 mg DAILY PO Last administered on 02/21/17 08:44; Start 02/19/17 at 09:00 Non-Formulary Medication 290 mcg DAILYWBKFT PO ; Start 02/19/17 at 08:00; Status UNV Loperamide HCl (Imodium) 2 mg PRN TID PRN PO DIARRHEA; Start 02/18/17 at 20:00 Multivitamins/ Calcium (Thera-M Plus) 1 tab DAILY PO Last administered on 08:44; Start 02/19/17 at 09:00 Fish Oil (Fish Oil) 1,000 mg DAILY PO Last administered on 02/21/17 08:43; Start 02/19/17 at 09:00 Polyethylene Glycol (miraLAX) 17 gm PRN DAILY PRN PO CONSTIPATION; Start at 07:15 Levothyroxine Sodium (Synthroid) 50 mcg DAILY07 PO ; Start 02/22/17 at 07:00 Escitalopram Oxalate (Lexapro) 5 mg DAILY PO ; Start 02/22/17 at 09:00 Active Scripts Active Reported Levothyroxine Sodium 25 Mcg Tablet 25 Mcg PO DAILY07 Miralax (Polyethylene Glycol 3350) 119 Gm Powder 17 Gm PO PRN DAILY PRN Loperamide (Loperamide Hcl) 2 Mg Tablet 2 Mg PO PRN TID PRN Bisacodyl 5 Mg Tablet.dr 10 Mg PO PRN DAILY PRN Alprazolam 0.25 Mg Tablet 0.25 Mg PO PRN TID PRN Tylenol (Acetaminophen) 325 Mg Tablet 650 Mg PO PRN Q4HRS PRN Seroquel (Quetiapine Fumarate) 50 Mg Tablet 50 Mg PO BID [place] 3 1,000 Mg Softgel ([place]-3 Fatty Acids/Fish Oil) 1 Each Capsule 1,000 Mg PO DAILY Centrum Silver Tablet (Multivits-Min/Fa/Lycopene/Lut) 1 Each Tablet 1 Tab PO DAILY Melatonin 5 Mg Tablet (Melatonin/Pyridoxine) 1 Each Tablet 10 Mg PO QHS Linzess (Linaclotide) 290 Mcg Capsule 290 Mcg PO DAILYWBKFT Folic Acid 0.4 Mg Tablet 0.4 Mg PO DAILY Aricept (Donepezil Hcl) 10 Mg Tablet 10 Mg PO QHS Restasis (Cyclosporine) 1 Each Droperette 1 Drop OU BID Vitamin B-12 (Cyanocobalamin (Vitamin B-12)) 500 Mcg Tablet 500 Mcg PO DAILY Vitamin D3 (Cholecalciferol (Vitamin D3)) 1,000 Unit Tablet 1,000 Unit PO DAILY Calcium 600 + Vit D 400 Tablet (Calcium Carbonate/Vitamin D3) 1 Each Tablet 1 Tab PO DAILY Atorvastatin Calcium 10 Mg Tablet 10 Mg PO QHS Aspir-Low (Aspirin) 81 Mg Tablet. 81 Mg PO DAILY AURELIANO MCCAULEY MD Feb 21, 2017 19:34
[2017-02-21] MEDS: MELATONIN 3 MG TABLET PO SCH (20:07)
[2017-02-21] MEDS: ATORVASTATIN CALCIUM 10 MG TABLET. PO SCH (20:07)
[2017-02-21] MEDS: DONEPEZIL HCL 10 MG TABLET PO SCH (20:07)
--- NOTE | 2017-02-22 01:34 | PN ---
DATE: 02/20/2017 This is a late entry for 02/20/2017, covers the elements not covered in my initial note of 02/20/2017. SUBJECTIVE: I met with the patient evening of 02/20/2017. The patient slept 4-3/4 hours previous night, ambulates independently, uses a cane. She is tangential and confused per nursing staff, wandering, behaviors are much better, seems calmer. REVIEW OF SYSTEMS: No CV, , pulmonary, eye, ENT system symptoms on review. MENTAL STATUS EXAM: Oriented to herself and situation. Speech is coherent, less pressured. Abstraction fair, computation impaired, language function intact. Attention span short, short-term memory has some impairment. LABORATORY DATA: Reviewed. IMPRESSION: Unchanged from initial note. PLAN: Continue current psychotropics, reviewed risk/benefit ratio and drug interactions. This indicates the addition of low-dose Lexapro 5 mg a day starting on 02/19/2017. Reviewed risk/benefit ratio with the patient and answered her questions. AURELIANO MCCAULEY MD DR: CORY/harinder JOB#: [id number] / [id number]
[2017-02-22 06:10] VITALS: BP 134/67
[2017-02-22] MEDS: LINACLOTIDE 145 MCG CAPSULE. PO SCH (06:29)
[2017-02-22] MEDS: LEVOTHYROXINE 50 MCG TABLET PO SCH (06:30)
[2017-02-22] MEDS: MULTIVITAMIN with MINERAL TABLET. PO SCH (08:09)
[2017-02-22] MEDS: CHOLECALCIFEROL (VITAMIN D3) 1,000 UNIT TABLET PO SCH (08:09)
[2017-02-22] MEDS: cycloSPORINE 0.05% OPTH 1 DROP DROPERETTE OU SCH ×2 (08:09→19:55)
[2017-02-22] MEDS: QUEtiapine 50 MG TABLET. PO SCH ×2 (08:10→19:54)
[2017-02-22] MEDS: CALCIUM CARB/VIT D3 500/200 TABLET PO SCH (08:10)
[2017-02-22] MEDS: CYANOCOBALAMIN (VITAMIN B-12) 250 MCG TABLET PO SCH (08:10)
[2017-02-22] MEDS: OMEGA-3 FATTY ACIDS/FISH OIL 1,000 MG CAPSULE. PO SCH (08:10)
[2017-02-22] MEDS: FOLIC ACID 1 MG TABLET PO SCH (08:10)
[2017-02-22] MEDS: ASPIRIN ENTERIC COATED 81 MG TABLET.DR. PO SCH (08:11)
[2017-02-22] MEDS: ESCITALOPRAM 10 MG TABLET. PO SCH (08:13)
[2017-02-22 16:22] VITALS: BP 162/69
[2017-02-22] MEDS: DONEPEZIL HCL 10 MG TABLET PO SCH (19:54)
[2017-02-22] MEDS: ATORVASTATIN CALCIUM 10 MG TABLET. PO SCH (19:54)
[2017-02-22] MEDS: MELATONIN 3 MG TABLET PO SCH (19:54)
--- NOTE | 2017-02-22 19:57 | PDOC ---
Exam Alonso Demential Exam: Alonso Note: Please also refer to the separate dictated note~for this date of service dictated separately.~Patient seen individually. Discussed the patient with Nursing staff reviewed the chart.~Reviewed interim history and current functioning. Reviewed vital signs,~Labs/ Radiology~and current medications noted below. Continue current treatment with the changes noted in the dictated addendum note Assessment: Vital Signs: Vital Signs Date Time Temp Pulse Resp B/P (MAP) Pulse Ox O2 Delivery O2 Flow Rate FiO2 02/22/17 16:22 97.2 64 18 162/69 (100) 96 02/21/17 17:30 Room Air I&O Intake and Output 02/23/17 07:00 Intake Total 1200 ml Balance 1200 ml Intake Oral 1200 ml Current Medications: Meds: Current Medications Acetaminophen (Tylenol) 650 mg PRN Q6HRS PRN PO PAIN / TEMP; Start 02/18/17 at 19:45 Multi-Ingredient Ointment (Analgesic [place]) 1 kevin PRN QID PRN TP MUSCLE PAIN; Start 02/18/17 at 19:45 Al Hydroxide/Mg Hydroxide (Mylanta Plus Xs) 15 ml PRN AFTMEALHC PRN PO DYSPEPSIA; Start 02/18/17 at 19:45 Magnesium Hydroxide (Milk Of Magnesia) 2,400 mg PRN QHS PRN PO CONSTIPATION; Start 02/18/17 at 19:45 Alprazolam (Xanax) 0.25 mg PRN TID PRN PO ANXIETY / AGITATION; Start 02/18/17 at 19:45 Donepezil HCl (Aricept) 10 mg QHS PO Last administered on 02/22/17 19:54; Start 02/18/17 at 21:00 Quetiapine Fumarate (SEROquel) 50 mg BID PO Last administered on 02/22/17 19:54 ; Start 02/18/17 at 21:00 Melatonin 9 mg QHS PO Last administered on 02/22/17 19:54; Start 02/18/17 at 21: 00 Olanzapine (ZyPREXA ZYDIS) 5 mg PRN Q2HR PRN PO Psych; Start 02/18/17 at 19:45 Aspirin (Aspirin Enteric Coated) 81 mg DAILY PO Last administered on 02/22/17 08:11; Start 02/19/17 at 09:00 Atorvastatin Calcium (Lipitor) 10 mg QHS PO Last administered on 02/22/17 19:54 ; Start 02/18/17 at 21:00 Bisacodyl (Dulcolax Tab) 10 mg PRN DAILY PRN PO CONSTIPATION; Start 02/18/17 at 20:00 Vitamin D (Vitamin D3) 1,000 unit DAILY PO Last administered on 02/22/17 08:09 ; Start 02/19/17 at 09:00 Cyclosporine (Restasis) 1 drop BID OU Last administered on 02/22/17 19:55; Start 02/18/17 at 21:00 Levothyroxine Sodium (Synthroid) 25 mcg DAILY07 PO Last administered on 06:13; Start 02/19/17 at 07:00; Stop 02/21/17 at 15:36; Status DC Polyethylene Glycol (miraLAX) 17 gm PRN DAILY PRN PO CONSTIPATION; Start at 20:00; Stop 02/19/17 at 07:15; Status DC Calcium/Vitamin D (Oscal D 500mg/ 200uts) 1 tab DAILY PO Last administered on 08:10; Start 02/19/17 at 09:00 Cyanocobalamin (Vitamin B-12) 500 mcg DAILY PO Last administered on 02/22/17 08 :10; Start 02/19/17 at 09:00 Folic Acid (Folic Acid) 0.5 mg DAILY PO Last administered on 02/22/17 08:10; Start 02/19/17 at 09:00 Non-Formulary Medication 290 mcg DAILYWBKFT PO ; Start 02/19/17 at 08:00; Status UNV Loperamide HCl (Imodium) 2 mg PRN TID PRN PO DIARRHEA; Start 02/18/17 at 20:00 Multivitamins/ Calcium (Thera-M Plus) 1 tab DAILY PO Last administered on 08:09; Start 02/19/17 at 09:00 Fish Oil (Fish Oil) 1,000 mg DAILY PO Last administered on 02/22/17 08:10; Start 02/19/17 at 09:00 Polyethylene Glycol (miraLAX) 17 gm PRN DAILY PRN PO CONSTIPATION; Start at 07:15 Levothyroxine Sodium (Synthroid) 50 mcg DAILY07 PO Last administered on 06:30; Start 02/22/17 at 07:00 Escitalopram Oxalate (Lexapro) 5 mg DAILY PO Last administered on 02/22/17 08: 13; Start 02/22/17 at 09:00 Active Scripts Active Reported Levothyroxine Sodium 25 Mcg Tablet 25 Mcg PO DAILY07 Miralax (Polyethylene Glycol 3350) 119 Gm Powder 17 Gm PO PRN DAILY PRN Loperamide (Loperamide Hcl) 2 Mg Tablet 2 Mg PO PRN TID PRN Bisacodyl 5 Mg Tablet. 10 Mg PO PRN DAILY PRN Alprazolam 0.25 Mg Tablet 0.25 Mg PO PRN TID PRN Tylenol (Acetaminophen) 325 Mg Tablet 650 Mg PO PRN Q4HRS PRN Seroquel (Quetiapine Fumarate) 50 Mg Tablet 50 Mg PO BID [place] 3 1,000 Mg Softgel ([place]-3 Fatty Acids/Fish Oil) 1 Each Capsule 1,000 Mg PO DAILY Centrum Silver Tablet (Multivits-Min/Fa/Lycopene/Lut) 1 Each Tablet 1 Tab PO DAILY Melatonin 5 Mg Tablet (Melatonin/Pyridoxine) 1 Each Tablet 10 Mg PO QHS Linzess (Linaclotide) 290 Mcg Capsule 290 Mcg PO DAILYWBKFT Folic Acid 0.4 Mg Tablet 0.4 Mg PO DAILY Aricept (Donepezil Hcl) 10 Mg Tablet 10 Mg PO QHS Restasis (Cyclosporine) 1 Each Droperette 1 Drop OU BID Vitamin B-12 (Cyanocobalamin (Vitamin B-12)) 500 Mcg Tablet 500 Mcg PO DAILY Vitamin D3 (Cholecalciferol (Vitamin D3)) 1,000 Unit Tablet 1,000 Unit PO DAILY Calcium 600 + Vit D 400 Tablet (Calcium Carbonate/Vitamin D3) 1 Each Tablet 1 Tab PO DAILY Atorvastatin Calcium 10 Mg Tablet 10 Mg PO QHS Aspir-Low (Aspirin) 81 Mg Tablet. 81 Mg PO DAILY AURELIANO MCCAULEY MD Feb 22, 2017 19:57
--- NOTE | 2017-02-23 01:11 | PN ---
DATE: 02/21/2017 This is a late entry 02/21/2017, covers the elements not covered in my initial note of 02/21/2017. I met with the patient the evening of 02/21/2017. Previous evening, she is wandering, confused, asking for a makeup, believed it was springtime. She knew she was in the hospital. Rambling in her speech per nursing report, short-term memory is impaired. REVIEW OF SYSTEMS: No CV, , pulmonary, eye, ENT system symptoms on review. Reliability varies. MENTAL STATUS EXAM: Oriented to herself and situation. Speech is coherent, has some latency. Abstraction fair, computation impaired, language function intact, attention span short. Mood and affect at times somewhat withdrawn, anxious. LABORATORY DATA: Reviewed. IMPRESSION: Major depressive disorder, recurrent; anxiety disorder, unspecified; major neurocognitive disorder, early Alzheimer, vascular with depression, delusions. Rest unchanged. Mild cognitive impairment. PLAN: Continue current psychotropics as mentioned in my initial note. I reviewed drug interactions, risk/benefit ratio favors no further change. MAN Malena MCCAULEY MD DR: CORY/harinder JOB#: [id number] / [id number]
[2017-02-23] MEDS: LINACLOTIDE 145 MCG CAPSULE. PO SCH (05:37)
[2017-02-23] MEDS: LEVOTHYROXINE 50 MCG TABLET PO SCH (05:37)
[2017-02-23 05:58] VITALS: BP 132/70
--- NOTE | 2017-02-23 07:10 | ACF ---
Admit Criteria Forms Admit Criteria Forms Admit Criteria Forms PSYCHIATRIC DISORDERS Clinical Indications for Inpatient Care (Place 'X' for any and all applicable criteria): Ongoing inpatient care may be needed for 1 or more of the following(1)(2)(3)(4)( 6)(7)(8): [ ]I. Danger to self or others not manageable at lower level of care. [ ]II. Grave disability (eg, inability to perform self care necessary at lower level of care) [ ]III. Agitation or inappropriate behavior interfering with care for primary condition (eg, attempting to discontinue lines or drains prematurely, unable to cooperate with respiratory care) [X]IV. Severe disability or disorder indicated by ALL of the following: [X]a) Severe behavioral health disorder-related symptoms or condition indicated by 1 or more of the following: [X]i) Severe problem with cognition, memory, judgment, or impulse control [X]ii) Severe clinical manifestations (eg, hallucinations, delusions, other acute psychotic symptoms, anitha, extreme agitation or anxiety) [X]b) Patient management at lower level of care is not feasible until acute intervention or modification is initiated. Extended stay beyond goal length of stay for the primary condition may be needed untilALLof the following are present(1)(2)(3)(4)(722)(23): [ ]a) Danger to self or others is absent or manageable at lower level of care [ ]b) Behavior crisis management, including physical or chemical restraints, is required and is not available at a lower level of care. [ ]c) Behavioral symptoms (e.g., agitation, somnolence, inappropriate behavior) are present, and are not manageable at a lower level of care. [ ]d) Patient cannot understand follow-up treatment and crisis plan. [ ]e) Provider and supports are sufficiently available at lower level of care. [ ]f) Patient can participate (e.g., verify absence of plan for harm) and is in needed of monitoring. The original [facility] [employer] content created by [employer] has been revised. The portions of the content which have been revised are identified through the use of italic text, and [employer] [facility] [employer] has neither reviewed nor approved the modified material. All other unmodified content is copyright [facility] [employer]. Please see references footnoted in the original [facility] edition 2014 JEREMIE MALDONADO Feb 23, 2017 07:10
[2017-02-23] MEDS: FOLIC ACID 1 MG TABLET PO SCH (09:23)
[2017-02-23] MEDS: CHOLECALCIFEROL (VITAMIN D3) 1,000 UNIT TABLET PO SCH (09:24)
[2017-02-23] MEDS: CYANOCOBALAMIN (VITAMIN B-12) 250 MCG TABLET PO SCH (09:24)
[2017-02-23] MEDS: QUEtiapine 50 MG TABLET. PO SCH ×2 (09:24→20:09)
[2017-02-23] MEDS: CALCIUM CARB/VIT D3 500/200 TABLET PO SCH (09:24)
[2017-02-23] MEDS: MULTIVITAMIN with MINERAL TABLET. PO SCH (09:24)
[2017-02-23] MEDS: ASPIRIN ENTERIC COATED 81 MG TABLET.DR. PO SCH (09:24)
[2017-02-23] MEDS: OMEGA-3 FATTY ACIDS/FISH OIL 1,000 MG CAPSULE. PO SCH (09:24)
[2017-02-23] MEDS: cycloSPORINE 0.05% OPTH 1 DROP DROPERETTE OU SCH ×2 (09:27→20:17)
[2017-02-23] MEDS: ESCITALOPRAM 10 MG TABLET. PO SCH (09:31)
[2017-02-23 16:01] VITALS: BP 127/57
--- NOTE | 2017-02-23 19:40 | PDOC ---
Exam Alonso Demential Exam: Alonso Note: Please also refer to the separate dictated note~for this date of service dictated separately.~Patient seen individually. Discussed the patient with Nursing staff reviewed the chart.~Reviewed interim history and current functioning. Reviewed vital signs,~Labs/ Radiology~and current medications noted below. Continue current treatment with the changes noted in the dictated addendum note Assessment: Vital Signs: Vital Signs Date Time Temp Pulse Resp B/P (MAP) Pulse Ox O2 Delivery O2 Flow Rate FiO2 02/23/17 16:01 97.2 69 16 127/57 (80) 96 02/21/17 17:30 Room Air I&O Intake and Output 02/24/17 07:00 Intake Total 1440 ml Balance 1440 ml Intake Oral 1440 ml Current Medications: Meds: Current Medications Acetaminophen (Tylenol) 650 mg PRN Q6HRS PRN PO PAIN / TEMP; Start 02/18/17 at 19:45 Multi-Ingredient Ointment (Analgesic [place]) 1 kevin PRN QID PRN TP MUSCLE PAIN; Start 02/18/17 at 19:45 Al Hydroxide/Mg Hydroxide (Mylanta Plus Xs) 15 ml PRN AFTMEALHC PRN PO DYSPEPSIA; Start 02/18/17 at 19:45 Magnesium Hydroxide (Milk Of Magnesia) 2,400 mg PRN QHS PRN PO CONSTIPATION; Start 02/18/17 at 19:45 Alprazolam (Xanax) 0.25 mg PRN TID PRN PO ANXIETY / AGITATION; Start 02/18/17 at 19:45 Donepezil HCl (Aricept) 10 mg QHS PO Last administered on 02/22/17 19:54; Start 02/18/17 at 21:00 Quetiapine Fumarate (SEROquel) 50 mg BID PO Last administered on 02/23/17 09:24 ; Start 02/18/17 at 21:00 Melatonin 9 mg QHS PO Last administered on 02/22/17 19:54; Start 02/18/17 at 21: 00 Olanzapine (ZyPREXA ZYDIS) 5 mg PRN Q2HR PRN PO Psych; Start 02/18/17 at 19:45 Aspirin (Aspirin Enteric Coated) 81 mg DAILY PO Last administered on 02/23/17 09:24; Start 02/19/17 at 09:00 Atorvastatin Calcium (Lipitor) 10 mg QHS PO Last administered on 02/22/17 19:54 ; Start 02/18/17 at 21:00 Bisacodyl (Dulcolax Tab) 10 mg PRN DAILY PRN PO CONSTIPATION; Start 02/18/17 at 20:00 Vitamin D (Vitamin D3) 1,000 unit DAILY PO Last administered on 02/23/17 09:24 ; Start 02/19/17 at 09:00 Cyclosporine (Restasis) 1 drop BID OU Last administered on 02/23/17 09:27; Start 02/18/17 at 21:00 Levothyroxine Sodium (Synthroid) 25 mcg DAILY07 PO Last administered on 06:13; Start 02/19/17 at 07:00; Stop 02/21/17 at 15:36; Status DC Polyethylene Glycol (miraLAX) 17 gm PRN DAILY PRN PO CONSTIPATION; Start at 20:00; Stop 02/19/17 at 07:15; Status DC Calcium/Vitamin D (Oscal D 500mg/ 200uts) 1 tab DAILY PO Last administered on 09:24; Start 02/19/17 at 09:00 Cyanocobalamin (Vitamin B-12) 500 mcg DAILY PO Last administered on 02/23/17 09 :24; Start 02/19/17 at 09:00 Folic Acid (Folic Acid) 0.5 mg DAILY PO Last administered on 02/23/17 09:23; Start 02/19/17 at 09:00 Non-Formulary Medication 290 mcg DAILYWBKFT PO ; Start 02/19/17 at 08:00; Status UNV Loperamide HCl (Imodium) 2 mg PRN TID PRN PO DIARRHEA; Start 02/18/17 at 20:00 Multivitamins/ Calcium (Thera-M Plus) 1 tab DAILY PO Last administered on 09:24; Start 02/19/17 at 09:00 Fish Oil (Fish Oil) 1,000 mg DAILY PO Last administered on 02/23/17 09:24; Start 02/19/17 at 09:00 Polyethylene Glycol (miraLAX) 17 gm PRN DAILY PRN PO CONSTIPATION; Start at 07:15 Levothyroxine Sodium (Synthroid) 50 mcg DAILY07 PO Last administered on 05:37; Start 02/22/17 at 07:00 Escitalopram Oxalate (Lexapro) 5 mg DAILY PO Last administered on 02/23/17 09: 31; Start 02/22/17 at 09:00 Active Scripts Active Reported Levothyroxine Sodium 25 Mcg Tablet 25 Mcg PO DAILY07 Miralax (Polyethylene Glycol 3350) 119 Gm Powder 17 Gm PO PRN DAILY PRN Loperamide (Loperamide Hcl) 2 Mg Tablet 2 Mg PO PRN TID PRN Bisacodyl 5 Mg Tablet.dr 10 Mg PO PRN DAILY PRN Alprazolam 0.25 Mg Tablet 0.25 Mg PO PRN TID PRN Tylenol (Acetaminophen) 325 Mg Tablet 650 Mg PO PRN Q4HRS PRN Seroquel (Quetiapine Fumarate) 50 Mg Tablet 50 Mg PO BID [place] 3 1,000 Mg Softgel ([place]-3 Fatty Acids/Fish Oil) 1 Each Capsule 1,000 Mg PO DAILY Centrum Silver Tablet (Multivits-Min/Fa/Lycopene/Lut) 1 Each Tablet 1 Tab PO DAILY Melatonin 5 Mg Tablet (Melatonin/Pyridoxine) 1 Each Tablet 10 Mg PO QHS Linzess (Linaclotide) 290 Mcg Capsule 290 Mcg PO DAILYWBKFT Folic Acid 0.4 Mg Tablet 0.4 Mg PO DAILY Aricept (Donepezil Hcl) 10 Mg Tablet 10 Mg PO QHS Restasis (Cyclosporine) 1 Each Droperette 1 Drop OU BID Vitamin B-12 (Cyanocobalamin (Vitamin B-12)) 500 Mcg Tablet 500 Mcg PO DAILY Vitamin D3 (Cholecalciferol (Vitamin D3)) 1,000 Unit Tablet 1,000 Unit PO DAILY Calcium 600 + Vit D 400 Tablet (Calcium Carbonate/Vitamin D3) 1 Each Tablet 1 Tab PO DAILY Atorvastatin Calcium 10 Mg Tablet 10 Mg PO QHS Aspir-Low (Aspirin) 81 Mg Tablet. 81 Mg PO DAILY AURELIANO MCCAULEY MD Feb 23, 2017 19:40
[2017-02-23] MEDS: ATORVASTATIN CALCIUM 10 MG TABLET. PO SCH (20:09)
[2017-02-23] MEDS: MELATONIN 3 MG TABLET PO SCH (20:09)
[2017-02-23] MEDS: DONEPEZIL HCL 10 MG TABLET PO SCH (20:09)
--- NOTE | 2017-02-24 02:12 | PN ---
DATE: 02/22/2017 PSYCHIATRIC PROGRESS NOTE This is a late entry of 02/22/2017 covers elements not covered in my initial note of 02/22/2017. SUBJECTIVE: The patient was seen individually evening of 02/22/2017. Per nursing report, the patient has been cooperative, somewhat withdrawn, gets forgetful minimizes her memory deficits, blaming a family for having here. REVIEW OF SYSTEMS: No CV, , pulmonary, eye, ENT system symptoms on review. Reliability varies. MENTAL STATUS EXAM: Oriented to herself and situation. Speech is coherent, abstraction fair, computation impaired. Memory is impaired, language function intact. Mood and affect somewhat withdrawn. No suicidal or homicidal ideation. LABORATORY DATA: Reviewed. IMPRESSION: Major neurocognitive disorder, early Alzheimer, vascular with delusion, depression; anxiety disorder, unspecified; impulse control disorder, unspecified. PLAN: From a psychiatric standpoint, continue current psychotropics mentioned in my initial note. Review drug interactions risk/benefit ratio favors no further change. Lexapro was initiated for mood, anxiety symptoms, may need to increase gradually or adjust Seroquel to augment the Lexapro as well. MAN Malena MCCAULEY MD DR: CORY/harinder JOB#: [id number] / [id number]
[2017-02-24] MEDS: LINACLOTIDE 145 MCG CAPSULE. PO SCH (05:22)
[2017-02-24] MEDS: LEVOTHYROXINE 50 MCG TABLET PO SCH (05:23)
[2017-02-24 06:42] VITALS: BP 137/54
[2017-02-24] MEDS: MULTIVITAMIN with MINERAL TABLET. PO SCH (07:56)
[2017-02-24] MEDS: CALCIUM CARB/VIT D3 500/200 TABLET PO SCH (07:56)
[2017-02-24] MEDS: cycloSPORINE 0.05% OPTH 1 DROP DROPERETTE OU SCH ×2 (07:56→20:01)
[2017-02-24] MEDS: CYANOCOBALAMIN (VITAMIN B-12) 250 MCG TABLET PO SCH (07:56)
[2017-02-24] MEDS: FOLIC ACID 1 MG TABLET PO SCH (07:57)
[2017-02-24] MEDS: ESCITALOPRAM 10 MG TABLET. PO SCH (07:57)
[2017-02-24] MEDS: CHOLECALCIFEROL (VITAMIN D3) 1,000 UNIT TABLET PO SCH (07:58)
[2017-02-24] MEDS: OMEGA-3 FATTY ACIDS/FISH OIL 1,000 MG CAPSULE. PO SCH (07:58)
[2017-02-24] MEDS: ASPIRIN ENTERIC COATED 81 MG TABLET.DR. PO SCH (07:58)
[2017-02-24] MEDS: QUEtiapine 50 MG TABLET. PO SCH ×2 (07:58→20:01)
[2017-02-24 15:44] VITALS: BP 153/72
[2017-02-24] MEDS: MELATONIN 3 MG TABLET PO SCH (20:01)
[2017-02-24] MEDS: ATORVASTATIN CALCIUM 10 MG TABLET. PO SCH (20:01)
[2017-02-24] MEDS: DONEPEZIL HCL 10 MG TABLET PO SCH (20:01)
--- NOTE | 2017-02-24 20:38 | PDOC ---
Exam Alonso Demential Exam: Alonso Note: Please also refer to the separate dictated note~for this date of service dictated separately.~Patient seen individually. Discussed the patient with Nursing staff reviewed the chart.~Reviewed interim history and current functioning. Reviewed vital signs,~Labs/ Radiology~and current medications noted below. Continue current treatment with the changes noted in the dictated addendum note Assessment: Vital Signs: Vital Signs Date Time Temp Pulse Resp B/P (MAP) Pulse Ox O2 Delivery O2 Flow Rate FiO2 02/24/17 15:44 97.2 90 21 153/72 (99) 98 02/21/17 17:30 Room Air I&O Intake and Output 02/25/17 07:00 Intake Total 840 ml Balance 840 ml Intake Oral 840 ml Current Medications: Meds: Current Medications Acetaminophen (Tylenol) 650 mg PRN Q6HRS PRN PO PAIN / TEMP; Start 02/18/17 at 19:45 Multi-Ingredient Ointment (Analgesic [place]) 1 kevin PRN QID PRN TP MUSCLE PAIN; Start 02/18/17 at 19:45 Al Hydroxide/Mg Hydroxide (Mylanta Plus Xs) 15 ml PRN AFTMEALHC PRN PO DYSPEPSIA; Start 02/18/17 at 19:45 Magnesium Hydroxide (Milk Of Magnesia) 2,400 mg PRN QHS PRN PO CONSTIPATION; Start 02/18/17 at 19:45 Alprazolam (Xanax) 0.25 mg PRN TID PRN PO ANXIETY / AGITATION; Start 02/18/17 at 19:45 Donepezil HCl (Aricept) 10 mg QHS PO Last administered on 02/24/17 20:01; Start 02/18/17 at 21:00 Quetiapine Fumarate (SEROquel) 50 mg BID PO Last administered on 02/24/17 20:01 ; Start 02/18/17 at 21:00 Melatonin 9 mg QHS PO Last administered on 02/24/17 20:01; Start 02/18/17 at 21: 00 Olanzapine (ZyPREXA ZYDIS) 5 mg PRN Q2HR PRN PO Psych; Start 02/18/17 at 19:45 Aspirin (Aspirin Enteric Coated) 81 mg DAILY PO Last administered on 02/24/17 07:58; Start 02/19/17 at 09:00 Atorvastatin Calcium (Lipitor) 10 mg QHS PO Last administered on 02/24/17 20:01 ; Start 02/18/17 at 21:00 Bisacodyl (Dulcolax Tab) 10 mg PRN DAILY PRN PO CONSTIPATION; Start 02/18/17 at 20:00 Vitamin D (Vitamin D3) 1,000 unit DAILY PO Last administered on 02/24/17 07:58 ; Start 02/19/17 at 09:00 Cyclosporine (Restasis) 1 drop BID OU Last administered on 02/24/17 20:01; Start 02/18/17 at 21:00 Levothyroxine Sodium (Synthroid) 25 mcg DAILY07 PO Last administered on 06:13; Start 02/19/17 at 07:00; Stop 02/21/17 at 15:36; Status DC Polyethylene Glycol (miraLAX) 17 gm PRN DAILY PRN PO CONSTIPATION; Start at 20:00; Stop 02/19/17 at 07:15; Status DC Calcium/Vitamin D (Oscal D 500mg/ 200uts) 1 tab DAILY PO Last administered on 07:56; Start 02/19/17 at 09:00 Cyanocobalamin (Vitamin B-12) 500 mcg DAILY PO Last administered on 02/24/17 07 :56; Start 02/19/17 at 09:00 Folic Acid (Folic Acid) 0.5 mg DAILY PO Last administered on 02/24/17 07:57; Start 02/19/17 at 09:00 Non-Formulary Medication 290 mcg DAILYWBKFT PO ; Start 02/19/17 at 08:00; Status UNV Loperamide HCl (Imodium) 2 mg PRN TID PRN PO DIARRHEA; Start 02/18/17 at 20:00 Multivitamins/ Calcium (Thera-M Plus) 1 tab DAILY PO Last administered on 07:56; Start 02/19/17 at 09:00 Fish Oil (Fish Oil) 1,000 mg DAILY PO Last administered on 02/24/17 07:58; Start 02/19/17 at 09:00 Polyethylene Glycol (miraLAX) 17 gm PRN DAILY PRN PO CONSTIPATION; Start at 07:15 Levothyroxine Sodium (Synthroid) 50 mcg DAILY07 PO Last administered on 05:23; Start 02/22/17 at 07:00 Escitalopram Oxalate (Lexapro) 5 mg DAILY PO Last administered on 02/24/17 07: 57; Start 02/22/17 at 09:00 Active Scripts Active Reported Levothyroxine Sodium 25 Mcg Tablet 25 Mcg PO DAILY07 Miralax (Polyethylene Glycol 3350) 119 Gm Powder 17 Gm PO PRN DAILY PRN Loperamide (Loperamide Hcl) 2 Mg Tablet 2 Mg PO PRN TID PRN Bisacodyl 5 Mg Tablet.dr 10 Mg PO PRN DAILY PRN Alprazolam 0.25 Mg Tablet 0.25 Mg PO PRN TID PRN Tylenol (Acetaminophen) 325 Mg Tablet 650 Mg PO PRN Q4HRS PRN Seroquel (Quetiapine Fumarate) 50 Mg Tablet 50 Mg PO BID [place] 3 1,000 Mg Softgel ([place]-3 Fatty Acids/Fish Oil) 1 Each Capsule 1,000 Mg PO DAILY Centrum Silver Tablet (Multivits-Min/Fa/Lycopene/Lut) 1 Each Tablet 1 Tab PO DAILY Melatonin 5 Mg Tablet (Melatonin/Pyridoxine) 1 Each Tablet 10 Mg PO QHS Linzess (Linaclotide) 290 Mcg Capsule 290 Mcg PO DAILYWBKFT Folic Acid 0.4 Mg Tablet 0.4 Mg PO DAILY Aricept (Donepezil Hcl) 10 Mg Tablet 10 Mg PO QHS Restasis (Cyclosporine) 1 Each Droperette 1 Drop OU BID Vitamin B-12 (Cyanocobalamin (Vitamin B-12)) 500 Mcg Tablet 500 Mcg PO DAILY Vitamin D3 (Cholecalciferol (Vitamin D3)) 1,000 Unit Tablet 1,000 Unit PO DAILY Calcium 600 + Vit D 400 Tablet (Calcium Carbonate/Vitamin D3) 1 Each Tablet 1 Tab PO DAILY Atorvastatin Calcium 10 Mg Tablet 10 Mg PO QHS Aspir-Low (Aspirin) 81 Mg Tablet. 81 Mg PO DAILY AURELIANO MCCAULEY MD Feb 24, 2017 20:38
--- NOTE | 2017-02-25 01:59 | PN ---
DATE: 02/23/2017 SUBJECTIVE: This is a late entry 02/23/2017 covers elements not covered in my initial note of 02/23/2017. The patient was staffed at a treatment team meeting with the entire team morning of 02/23/2017. The patient's son Priya and daughter Latasha attended the conference. We reviewed the patient's history at length including her progressive memory deficits, vacillation, and decisions about sending her home, all of which have been progressing for the past several years. She has also been increasingly delusional ultimately resulting in her placement in 10/2016 [place]. She had then talked about getting more depressed being in a facility and expressed suicidal ideation and made a vague statements that she take her [id number] with her. Appetite is 90% sleeping about 6 hours. I met with her on 3 separate occasions evening of 02/23/2017, as she was anxious, restless, and repeatedly asking me the same questions about discharge plans and why she was here all of which I went over with her. She is also extremely distressed about the temperature in her room and I checked the thermostat adjusted at 77, but she was not entirely convinced. She is wanting her closet open. All of this is reflective of her ongoing anxiety. REVIEW OF SYSTEMS: Positive for feeling cold. No CV, , pulmonary, eye, or ENT system symptoms on review. MENTAL STATUS EXAM: Oriented to herself and situation. Speech is coherent, abstraction fair, computation impaired, and language function intact. Short term memory is impaired. No active suicidal or homicidal ideation. Intellect average. Insight limited. LABORATORY DATA: Reviewed. IMPRESSION: Unchanged from initial note, major depressive disorder, recurrent; major neurocognitive disorder, Alzheimer, vascular with depression; and anxiety disorder, unspecified. Rest unchanged. PLAN: Continue current psychotropics. Reviewed drug interactions. Risk/benefit ratio favors no further change. AURELIANO MCCAULEY MD DR: CORY/harinder JOB#: [id number] / [id number]
[2017-02-25] MEDS: LINACLOTIDE 145 MCG CAPSULE. PO SCH (05:03)
[2017-02-25] MEDS: LEVOTHYROXINE 50 MCG TABLET PO SCH (05:04)
[2017-02-25 05:55] VITALS: BP 120/75
[2017-02-25] MEDS: CYANOCOBALAMIN (VITAMIN B-12) 250 MCG TABLET PO SCH (07:50)
[2017-02-25] MEDS: MULTIVITAMIN with MINERAL TABLET. PO SCH (07:50)
[2017-02-25] MEDS: cycloSPORINE 0.05% OPTH 1 DROP DROPERETTE OU SCH ×2 (07:50→20:18)
[2017-02-25] MEDS: CHOLECALCIFEROL (VITAMIN D3) 1,000 UNIT TABLET PO SCH (07:51)
[2017-02-25] MEDS: QUEtiapine 50 MG TABLET. PO SCH ×2 (07:51→20:18)
[2017-02-25] MEDS: FOLIC ACID 1 MG TABLET PO SCH (07:51)
[2017-02-25] MEDS: ASPIRIN ENTERIC COATED 81 MG TABLET.DR. PO SCH (07:51)
[2017-02-25] MEDS: CALCIUM CARB/VIT D3 500/200 TABLET PO SCH (07:51)
[2017-02-25] MEDS: OMEGA-3 FATTY ACIDS/FISH OIL 1,000 MG CAPSULE. PO SCH (07:52)
[2017-02-25] MEDS: ESCITALOPRAM 10 MG TABLET. PO SCH (07:53)
[2017-02-25 17:20] VITALS: BP 152/71
[2017-02-25] MEDS: MELATONIN 3 MG TABLET PO SCH (20:17)
[2017-02-25] MEDS: DONEPEZIL HCL 10 MG TABLET PO SCH (20:18)
[2017-02-25] MEDS: ATORVASTATIN CALCIUM 10 MG TABLET. PO SCH (20:18)
--- NOTE | 2017-02-25 23:08 | PDOC ---
Exam Alonso Demential Exam: Alonso Note: Please also refer to the separate dictated note~for this date of service dictated separately.~Patient seen individually. Discussed the patient with Nursing staff reviewed the chart.~Reviewed interim history and current functioning. Reviewed vital signs,~Labs/ Radiology~and current medications noted below. Continue current treatment with the changes noted in the dictated addendum note Assessment: Vital Signs: Vital Signs Date Time Temp Pulse Resp B/P (MAP) Pulse Ox O2 Delivery O2 Flow Rate FiO2 02/25/17 17:20 97.8 72 16 152/71 (98) 93 02/25/17 05:55 Room Air I&O Intake and Output 02/26/17 07:00 Intake Total 1340 ml Balance 1340 ml Intake Oral 1340 ml Current Medications: Meds: Current Medications Acetaminophen (Tylenol) 650 mg PRN Q6HRS PRN PO PAIN / TEMP; Start 02/18/17 at 19:45 Multi-Ingredient Ointment (Analgesic [place]) 1 kevin PRN QID PRN TP MUSCLE PAIN; Start 02/18/17 at 19:45 Al Hydroxide/Mg Hydroxide (Mylanta Plus Xs) 15 ml PRN AFTMEALHC PRN PO DYSPEPSIA; Start 02/18/17 at 19:45 Magnesium Hydroxide (Milk Of Magnesia) 2,400 mg PRN QHS PRN PO CONSTIPATION; Start 02/18/17 at 19:45 Alprazolam (Xanax) 0.25 mg PRN TID PRN PO ANXIETY / AGITATION; Start 02/18/17 at 19:45 Donepezil HCl (Aricept) 10 mg QHS PO Last administered on 02/25/17 20:18; Start 02/18/17 at 21:00 Quetiapine Fumarate (SEROquel) 50 mg BID PO Last administered on 02/25/17 20:18 ; Start 02/18/17 at 21:00 Melatonin 9 mg QHS PO Last administered on 02/25/17 20:17; Start 02/18/17 at 21: 00 Olanzapine (ZyPREXA ZYDIS) 5 mg PRN Q2HR PRN PO Psych; Start 02/18/17 at 19:45 Aspirin (Aspirin Enteric Coated) 81 mg DAILY PO Last administered on 02/25/17 07:51; Start 02/19/17 at 09:00 Atorvastatin Calcium (Lipitor) 10 mg QHS PO Last administered on 02/25/17 20:18 ; Start 02/18/17 at 21:00 Bisacodyl (Dulcolax Tab) 10 mg PRN DAILY PRN PO CONSTIPATION; Start 02/18/17 at 20:00 Vitamin D (Vitamin D3) 1,000 unit DAILY PO Last administered on 02/25/17 07:51 ; Start 02/19/17 at 09:00 Cyclosporine (Restasis) 1 drop BID OU Last administered on 02/25/17 20:18; Start 02/18/17 at 21:00 Levothyroxine Sodium (Synthroid) 25 mcg DAILY07 PO Last administered on 06:13; Start 02/19/17 at 07:00; Stop 02/21/17 at 15:36; Status DC Polyethylene Glycol (miraLAX) 17 gm PRN DAILY PRN PO CONSTIPATION; Start at 20:00; Stop 02/19/17 at 07:15; Status DC Calcium/Vitamin D (Oscal D 500mg/ 200uts) 1 tab DAILY PO Last administered on 07:51; Start 02/19/17 at 09:00 Cyanocobalamin (Vitamin B-12) 500 mcg DAILY PO Last administered on 02/25/17 07 :50; Start 02/19/17 at 09:00 Folic Acid (Folic Acid) 0.5 mg DAILY PO Last administered on 02/25/17 07:51; Start 02/19/17 at 09:00 Non-Formulary Medication 290 mcg DAILYWBKFT PO ; Start 02/19/17 at 08:00; Status UNV Loperamide HCl (Imodium) 2 mg PRN TID PRN PO DIARRHEA; Start 02/18/17 at 20:00 Multivitamins/ Calcium (Thera-M Plus) 1 tab DAILY PO Last administered on 07:50; Start 02/19/17 at 09:00 Fish Oil (Fish Oil) 1,000 mg DAILY PO Last administered on 02/25/17 07:52; Start 02/19/17 at 09:00 Polyethylene Glycol (miraLAX) 17 gm PRN DAILY PRN PO CONSTIPATION; Start at 07:15 Levothyroxine Sodium (Synthroid) 50 mcg DAILY07 PO Last administered on 05:04; Start 02/22/17 at 07:00 Escitalopram Oxalate (Lexapro) 5 mg DAILY PO Last administered on 02/25/17 07: 53; Start 02/22/17 at 09:00 Active Scripts Active Reported Levothyroxine Sodium 25 Mcg Tablet 25 Mcg PO DAILY07 Miralax (Polyethylene Glycol 3350) 119 Gm Powder 17 Gm PO PRN DAILY PRN Loperamide (Loperamide Hcl) 2 Mg Tablet 2 Mg PO PRN TID PRN Bisacodyl 5 Mg Tablet.dr 10 Mg PO PRN DAILY PRN Alprazolam 0.25 Mg Tablet 0.25 Mg PO PRN TID PRN Tylenol (Acetaminophen) 325 Mg Tablet 650 Mg PO PRN Q4HRS PRN Seroquel (Quetiapine Fumarate) 50 Mg Tablet 50 Mg PO BID [place] 3 1,000 Mg Softgel ([place]-3 Fatty Acids/Fish Oil) 1 Each Capsule 1,000 Mg PO DAILY Centrum Silver Tablet (Multivits-Min/Fa/Lycopene/Lut) 1 Each Tablet 1 Tab PO DAILY Melatonin 5 Mg Tablet (Melatonin/Pyridoxine) 1 Each Tablet 10 Mg PO QHS Linzess (Linaclotide) 290 Mcg Capsule 290 Mcg PO DAILYWBKFT Folic Acid 0.4 Mg Tablet 0.4 Mg PO DAILY Aricept (Donepezil Hcl) 10 Mg Tablet 10 Mg PO QHS Restasis (Cyclosporine) 1 Each Droperette 1 Drop OU BID Vitamin B-12 (Cyanocobalamin (Vitamin B-12)) 500 Mcg Tablet 500 Mcg PO DAILY Vitamin D3 (Cholecalciferol (Vitamin D3)) 1,000 Unit Tablet 1,000 Unit PO DAILY Calcium 600 + Vit D 400 Tablet (Calcium Carbonate/Vitamin D3) 1 Each Tablet 1 Tab PO DAILY Atorvastatin Calcium 10 Mg Tablet 10 Mg PO QHS Aspir-Low (Aspirin) 81 Mg Tablet. 81 Mg PO DAILY AURELIANO MCCAULEY MD Feb 25, 2017 23:08
--- NOTE | 2017-02-26 01:56 | PN ---
DATE: 02/24/2017 This late entry 02/24 covers elements not covered in my initial note of 02/24. I met with the patient in the evening of 02/24. The patient has been withdrawn, little irritable at times, comes out for meals, compliant with medications, still fixated, angry, upset about being here, minimizes most of her memory problems, feels she cannot be living back in her home. I processed this at length with her and attempted to frame her children's concern about her safety living in her home as a positive that they care for her rather than them trying to impose their will on her. It was unclear if she accepted this. REVIEW OF SYSTEMS: No CV, , pulmonary, eye system symptoms on review. Reliability fair. MENTAL STATUS EXAM: Oriented to herself and situation. Speech coherent, abstraction fair, computation impaired, language function intact, attention span short. Mood and affect still somewhat anxious, labile and dysphoric. LABORATORY DATA: Reviewed. IMPRESSION: Unchanged from initial note. PLAN: Continue current psychotropics mentioned in my initial note, I have reviewed drug contractions, risk/benefit ratio favors no further change. MAN Malena MCCAULEY MD DR: CORY/harinder JOB#: [id number] / [id number]
[2017-02-26] MEDS: LINACLOTIDE 145 MCG CAPSULE. PO SCH (05:37)
[2017-02-26] MEDS: LEVOTHYROXINE 50 MCG TABLET PO SCH (05:37)
[2017-02-26 06:06] VITALS: BP 151/85
[2017-02-26] MEDS: cycloSPORINE 0.05% OPTH 1 DROP DROPERETTE OU SCH ×2 (07:26→20:04)
[2017-02-26] MEDS: ESCITALOPRAM 10 MG TABLET. PO SCH (07:26)
[2017-02-26] MEDS: CALCIUM CARB/VIT D3 500/200 TABLET PO SCH (07:27)
[2017-02-26] MEDS: MULTIVITAMIN with MINERAL TABLET. PO SCH (07:27)
[2017-02-26] MEDS: QUEtiapine 50 MG TABLET. PO SCH ×2 (07:27→20:07)
[2017-02-26] MEDS: ASPIRIN ENTERIC COATED 81 MG TABLET.DR. PO SCH (07:27)
[2017-02-26] MEDS: CHOLECALCIFEROL (VITAMIN D3) 1,000 UNIT TABLET PO SCH (07:27)
[2017-02-26] MEDS: CYANOCOBALAMIN (VITAMIN B-12) 250 MCG TABLET PO SCH (07:27)
[2017-02-26] MEDS: OMEGA-3 FATTY ACIDS/FISH OIL 1,000 MG CAPSULE. PO SCH (07:27)
[2017-02-26] MEDS: FOLIC ACID 1 MG TABLET PO SCH (07:28)
[2017-02-26 16:48] VITALS: BP 176/88
--- NOTE | 2017-02-26 20:03 | PDOC ---
Exam Alonso Demential Exam: Alonso Note: Please also refer to the separate dictated note~for this date of service dictated separately.~Patient seen individually. Discussed the patient with Nursing staff reviewed the chart.~Reviewed interim history and current functioning. Reviewed vital signs,~Labs/ Radiology~and current medications noted below. Continue current treatment with the changes noted in the dictated addendum note Assessment: Vital Signs: Vital Signs Date Time Temp Pulse Resp B/P (MAP) Pulse Ox O2 Delivery O2 Flow Rate FiO2 02/26/17 16:48 98.7 75 16 176/88 (117) 97 02/26/17 06:06 Room Air I&O Intake and Output 02/27/17 07:00 Intake Total 960 ml Balance 960 ml Intake Oral 960 ml Current Medications: Meds: Current Medications Acetaminophen (Tylenol) 650 mg PRN Q6HRS PRN PO PAIN / TEMP; Start 02/18/17 at 19:45 Multi-Ingredient Ointment (Analgesic [place]) 1 kevin PRN QID PRN TP MUSCLE PAIN; Start 02/18/17 at 19:45 Al Hydroxide/Mg Hydroxide (Mylanta Plus Xs) 15 ml PRN AFTMEALHC PRN PO DYSPEPSIA; Start 02/18/17 at 19:45 Magnesium Hydroxide (Milk Of Magnesia) 2,400 mg PRN QHS PRN PO CONSTIPATION; Start 02/18/17 at 19:45 Alprazolam (Xanax) 0.25 mg PRN TID PRN PO ANXIETY / AGITATION; Start 02/18/17 at 19:45 Donepezil HCl (Aricept) 10 mg QHS PO Last administered on 02/25/17 20:18; Start 02/18/17 at 21:00 Quetiapine Fumarate (SEROquel) 50 mg BID PO Last administered on 02/26/17 07: 27; Start 02/18/17 at 21:00 Melatonin 9 mg QHS PO Last administered on 02/25/17 20:17; Start 02/18/17 at 21: 00 Olanzapine (ZyPREXA ZYDIS) 5 mg PRN Q2HR PRN PO Psych; Start 02/18/17 at 19:45 Aspirin (Aspirin Enteric Coated) 81 mg DAILY PO Last administered on 02/26/17 07:27; Start 02/19/17 at 09:00 Atorvastatin Calcium (Lipitor) 10 mg QHS PO Last administered on 02/25/17 20:18 ; Start 02/18/17 at 21:00 Bisacodyl (Dulcolax Tab) 10 mg PRN DAILY PRN PO CONSTIPATION; Start 02/18/17 at 20:00 Vitamin D (Vitamin D3) 1,000 unit DAILY PO Last administered on 02/26/17 07:27 ; Start 02/19/17 at 09:00 Cyclosporine (Restasis) 1 drop BID OU Last administered on 02/26/17 07:26; Start 02/18/17 at 21:00 Levothyroxine Sodium (Synthroid) 25 mcg DAILY07 PO Last administered on 06:13; Start 02/19/17 at 07:00; Stop 02/21/17 at 15:36; Status DC Polyethylene Glycol (miraLAX) 17 gm PRN DAILY PRN PO CONSTIPATION; Start at 20:00; Stop 02/19/17 at 07:15; Status DC Calcium/Vitamin D (Oscal D 500mg/ 200uts) 1 tab DAILY PO Last administered on 07:27; Start 02/19/17 at 09:00 Cyanocobalamin (Vitamin B-12) 500 mcg DAILY PO Last administered on 02/26/17 07:27; Start 02/19/17 at 09:00 Folic Acid (Folic Acid) 0.5 mg DAILY PO Last administered on 02/26/17 07:28; Start 02/19/17 at 09:00 Non-Formulary Medication 290 mcg DAILYWBKFT PO ; Start 02/19/17 at 08:00; Status UNV Loperamide HCl (Imodium) 2 mg PRN TID PRN PO DIARRHEA; Start 02/18/17 at 20:00 Multivitamins/ Calcium (Thera-M Plus) 1 tab DAILY PO Last administered on 07:27; Start 02/19/17 at 09:00 Fish Oil (Fish Oil) 1,000 mg DAILY PO Last administered on 02/26/17 07:27; Start 02/19/17 at 09:00 Polyethylene Glycol (miraLAX) 17 gm PRN DAILY PRN PO CONSTIPATION; Start at 07:15 Levothyroxine Sodium (Synthroid) 50 mcg DAILY07 PO Last administered on 05:37; Start 02/22/17 at 07:00 Escitalopram Oxalate (Lexapro) 5 mg DAILY PO Last administered on 02/26/17 07: 26; Start 02/22/17 at 09:00 Active Scripts Active Reported Levothyroxine Sodium 25 Mcg Tablet 25 Mcg PO DAILY07 Miralax (Polyethylene Glycol 3350) 119 Gm Powder 17 Gm PO PRN DAILY PRN Loperamide (Loperamide Hcl) 2 Mg Tablet 2 Mg PO PRN TID PRN Bisacodyl 5 Mg Tablet.dr 10 Mg PO PRN DAILY PRN Alprazolam 0.25 Mg Tablet 0.25 Mg PO PRN TID PRN Tylenol (Acetaminophen) 325 Mg Tablet 650 Mg PO PRN Q4HRS PRN Seroquel (Quetiapine Fumarate) 50 Mg Tablet 50 Mg PO BID [place] 3 1,000 Mg Softgel ([place]-3 Fatty Acids/Fish Oil) 1 Each Capsule 1,000 Mg PO DAILY Centrum Silver Tablet (Multivits-Min/Fa/Lycopene/Lut) 1 Each Tablet 1 Tab PO DAILY Melatonin 5 Mg Tablet (Melatonin/Pyridoxine) 1 Each Tablet 10 Mg PO QHS Linzess (Linaclotide) 290 Mcg Capsule 290 Mcg PO DAILYWBKFT Folic Acid 0.4 Mg Tablet 0.4 Mg PO DAILY Aricept (Donepezil Hcl) 10 Mg Tablet 10 Mg PO QHS Restasis (Cyclosporine) 1 Each Droperette 1 Drop OU BID Vitamin B-12 (Cyanocobalamin (Vitamin B-12)) 500 Mcg Tablet 500 Mcg PO DAILY Vitamin D3 (Cholecalciferol (Vitamin D3)) 1,000 Unit Tablet 1,000 Unit PO DAILY Calcium 600 + Vit D 400 Tablet (Calcium Carbonate/Vitamin D3) 1 Each Tablet 1 Tab PO DAILY Atorvastatin Calcium 10 Mg Tablet 10 Mg PO QHS Aspir-Low (Aspirin) 81 Mg Tablet. 81 Mg PO DAILY AURELIANO MCCAULEY MD Feb 26, 2017 20:03
[2017-02-26] MEDS: ATORVASTATIN CALCIUM 10 MG TABLET. PO SCH (20:04)
[2017-02-26] MEDS: MELATONIN 3 MG TABLET PO SCH (20:04)
[2017-02-26] MEDS: DONEPEZIL HCL 10 MG TABLET PO SCH (20:05)
--- NOTE | 2017-02-26 20:08 | PN ---
DATE: 02/25/2017 This is a late entry for 02/25/2017 and covers elements not covered in my initial note of 02/25/217. I met with the patient the evening of 02/25/2017. She is up for meals, compliant with medications, quite obsessive previous evening per nursing staff and during the day on 02/25/2017 regarding her belongings, things in her closet, believing they were being stolen, obsessed regarding her jacket which I processed with her. She slept 6-3/4 hours previous evening. No CV, , pulmonary, eye system symptoms on review. Admits to feeling cold. MENTAL STATUS EXAM: Oriented to herself and situation. Speech is coherent, abstraction fair, computation impaired, language function intact, attention span short. Mood and affect remain somewhat anxious, obsessive, repetitive. LABORATORY DATA: Reviewed. No suicidal or homicidal ideation. IMPRESSION: Unchanged from initial note. PLAN: Continue current psychotropics, reviewed drug interactions, risk/benefit ratio favors no further changes as of now. MAN Malena MCCAULEY MD DR: CORY/harinder JOB#: [id number] / [id number]
[2017-02-27] MEDS: LINACLOTIDE 145 MCG CAPSULE. PO SCH (05:35)
[2017-02-27] MEDS: LEVOTHYROXINE 50 MCG TABLET PO SCH (05:35)
[2017-02-27 06:09] VITALS: BP 156/73
[2017-02-27] MEDS: CALCIUM CARB/VIT D3 500/200 TABLET PO SCH (09:06)
[2017-02-27] MEDS: CYANOCOBALAMIN (VITAMIN B-12) 250 MCG TABLET PO SCH (09:06)
[2017-02-27] MEDS: CHOLECALCIFEROL (VITAMIN D3) 1,000 UNIT TABLET PO SCH (09:07)
[2017-02-27] MEDS: QUEtiapine 50 MG TABLET. PO SCH ×2 (09:07→19:39)
[2017-02-27] MEDS: MULTIVITAMIN with MINERAL TABLET. PO SCH (09:07)
[2017-02-27] MEDS: FOLIC ACID 1 MG TABLET PO SCH (09:07)
[2017-02-27] MEDS: OMEGA-3 FATTY ACIDS/FISH OIL 1,000 MG CAPSULE. PO SCH (09:07)
[2017-02-27] MEDS: ASPIRIN ENTERIC COATED 81 MG TABLET.DR. PO SCH (09:07)
[2017-02-27] MEDS: cycloSPORINE 0.05% OPTH 1 DROP DROPERETTE OU SCH ×2 (09:07→19:42)
[2017-02-27] MEDS: ESCITALOPRAM 10 MG TABLET. PO SCH (09:08)
[2017-02-27 09:52] LABS: BASO # 0.1 x10^3/uL (0.0-0.2); BASO % 1 % (0-3); EOS # 0.2 x10^3/uL (0.0-0.7); EOS % 3 % (0-3); HEMATOCRIT 35.6 % (36.0-47.0); HEMOGLOBIN 12.3 g/dL (12.0-15.5); LYMPH # 0.8 x10^3/uL (1.0-4.8); LYMPH % 15 % (24-48); MEAN CORPUSCULAR HEMOGLOBIN 35 pg (25-35); MEAN CORPUSCULAR HGB CONC 35 g/dL (31-37); MEAN CORPUSCULAR VOLUME 102 fL (79-100); MONO # 0.4 x10^3/uL (0.0-1.1); MONO % 7 % (0-9); NEUT # 3.9 x10^3uL (1.8-7.7); NEUT % 73 % (31-73); PLATELET COUNT 289 x10^3/uL (140-400); RED BLOOD COUNT 3.48 x10^6/uL (3.50-5.40); WHITE BLOOD COUNT 5.4 x10^3/uL (4.0-11.0)
[2017-02-27 10:14] LABS: ALBUMIN 3.3 g/dL (3.4-5.0); ALBUMIN/GLOBULIN RATIO 0.9 (1.0-1.7); CALCIUM 8.8 mg/dL (8.5-10.1); CREATININE 0.9 mg/dL (0.6-1.0); GFR 60.6; MAGNESIUM 1.9 mg/dL (1.8-2.4); POTASSIUM 4.5 mmol/L (3.5-5.1); TOTAL BILIRUBIN 0.3 mg/dL (0.2-1.0); TOTAL PROTEIN 6.9 g/dL (6.4-8.2)
[2017-02-27] MEDS: MAGNESIUM HYDROXIDE 2,400 MG/30 ML ORAL.SUSP. PO PRN (12:45)
[2017-02-27 16:01] VITALS: BP 185/71
[2017-02-27] MEDS: DONEPEZIL HCL 10 MG TABLET PO SCH (19:39)
[2017-02-27] MEDS: ATORVASTATIN CALCIUM 10 MG TABLET. PO SCH (19:39)
[2017-02-27] MEDS: MELATONIN 3 MG TABLET PO SCH (19:41)
--- NOTE | 2017-02-27 19:44 | PDOC ---
Exam Alonso Demential Exam: Alonso Note: Please also refer to the separate dictated note~for this date of service dictated separately.~Patient seen individually. Discussed the patient with Nursing staff reviewed the chart.~Reviewed interim history and current functioning. Reviewed vital signs,~Labs/ Radiology~and current medications noted below. Continue current treatment with the changes noted in the dictated addendum note Assessment: Vital Signs: Vital Signs Date Time Temp Pulse Resp B/P (MAP) Pulse Ox O2 Delivery O2 Flow Rate FiO2 02/27/17 16:01 97.3 77 18 185/71 (109) 96 02/26/17 06:06 Room Air I&O Intake and Output 02/28/17 07:00 Intake Total 1020 ml Balance 1020 ml Intake Oral 1020 ml Labs: Laboratory Tests Test 02/27/17 09:39 White Blood Count 5.4 x10^3/uL (4.0-11.0) Red Blood Count 3.48 x10^6/uL (3.50-5.40) L Hemoglobin 12.3 g/dL (12.0-15.5) Hematocrit 35.6 % (36.0-47.0) L Mean Corpuscular Volume 102 fL (79-100) H Mean Corpuscular Hemoglobin 35 pg (25-35) Mean Corpuscular Hemoglobin Concent 35 g/dL (31-37) Red Cell Distribution Width 13.0 % (11.5-14.5) Platelet Count 289 x10^3/uL (140-400) Neutrophils (%) (Auto) 73 % (31-73) Lymphocytes (%) (Auto) 15 % (24-48) L Monocytes (%) (Auto) 7 % (0-9) Eosinophils (%) (Auto) 3 % (0-3) Basophils (%) (Auto) 1 % (0-3) Neutrophils # (Auto) 3.9 x10^3uL (1.8-7.7) Lymphocytes # (Auto) 0.8 x10^3/uL (1.0-4.8) L Monocytes # (Auto) 0.4 x10^3/uL (0.0-1.1) Eosinophils # (Auto) 0.2 x10^3/uL (0.0-0.7) Basophils # (Auto) 0.1 x10^3/uL (0.0-0.2) Sodium Level 135 mmol/L (136-145) L Potassium Level 4.5 mmol/L (3.5-5.1) Chloride Level 100 mmol/L (98-107) Carbon Dioxide Level 34 mmol/L (21-32) H Anion Gap 1 (6-14) L Blood Urea Nitrogen 20 mg/dL (7-20) Creatinine 0.9 mg/dL (0.6-1.0) Estimated GFR (Cockcroft-Gault) 60.6 BUN/Creatinine Ratio 22 (6-20) H Glucose Level 96 mg/dL (70-99) Calcium Level 8.8 mg/dL (8.5-10.1) Magnesium Level 1.9 mg/dL (1.8-2.4) Total Bilirubin 0.3 mg/dL (0.2-1.0) Aspartate Amino Transferase (AST) 19 U/L (15-37) Alanine Aminotransferase (ALT) 21 U/L (14-59) Alkaline Phosphatase 70 U/L (46-116) Total Protein 6.9 g/dL (6.4-8.2) Albumin 3.3 g/dL (3.4-5.0) L Albumin/Globulin Ratio 0.9 (1.0-1.7) L Current Medications: Meds: Current Medications Acetaminophen (Tylenol) 650 mg PRN Q6HRS PRN PO PAIN / TEMP Last administered on 02/26/17 20:05; Start 02/18/17 at 19:45 Multi-Ingredient Ointment (Analgesic [place]) 1 kevin PRN QID PRN TP MUSCLE PAIN; Start 02/18/17 at 19:45 Al Hydroxide/Mg Hydroxide (Mylanta Plus Xs) 15 ml PRN AFTMEALHC PRN PO DYSPEPSIA; Start 02/18/17 at 19:45 Magnesium Hydroxide (Milk Of Magnesia) 2,400 mg PRN QHS PRN PO CONSTIPATION Last administered on 02/27/17 12:45; Start 02/18/17 at 19:45 Alprazolam (Xanax) 0.25 mg PRN TID PRN PO ANXIETY / AGITATION; Start 02/18/17 at 19:45 Donepezil HCl (Aricept) 10 mg QHS PO Last administered on 02/27/17 19:39; Start 02/18/17 at 21:00 Quetiapine Fumarate (SEROquel) 50 mg BID PO Last administered on 02/27/17 19: 39; Start 02/18/17 at 21:00 Melatonin 9 mg QHS PO Last administered on 02/27/17 19:41; Start 02/18/17 at 21 :00 Olanzapine (ZyPREXA ZYDIS) 5 mg PRN Q2HR PRN PO Psych; Start 02/18/17 at 19:45 Aspirin (Aspirin Enteric Coated) 81 mg DAILY PO Last administered on 02/27/17 09:07; Start 02/19/17 at 09:00 Atorvastatin Calcium (Lipitor) 10 mg QHS PO Last administered on 02/27/17 19: 39; Start 02/18/17 at 21:00 Bisacodyl (Dulcolax Tab) 10 mg PRN DAILY PRN PO CONSTIPATION; Start 02/18/17 at 20:00 Vitamin D (Vitamin D3) 1,000 unit DAILY PO Last administered on 02/27/17 09:07 ; Start 02/19/17 at 09:00 Cyclosporine (Restasis) 1 drop BID OU Last administered on 02/27/17 19:42; Start 02/18/17 at 21:00 Levothyroxine Sodium (Synthroid) 25 mcg DAILY07 PO Last administered on 06:13; Start 02/19/17 at 07:00; Stop 02/21/17 at 15:36; Status DC Polyethylene Glycol (miraLAX) 17 gm PRN DAILY PRN PO CONSTIPATION; Start at 20:00; Stop 02/19/17 at 07:15; Status DC Calcium/Vitamin D (Oscal D 500mg/ 200uts) 1 tab DAILY PO Last administered on 09:06; Start 02/19/17 at 09:00 Cyanocobalamin (Vitamin B-12) 500 mcg DAILY PO Last administered on 02/27/17 09:06; Start 02/19/17 at 09:00 Folic Acid (Folic Acid) 0.5 mg DAILY PO Last administered on 02/27/17 09:07; Start 02/19/17 at 09:00 Non-Formulary Medication 290 mcg DAILYWBKFT PO ; Start 02/19/17 at 08:00; Status UNV Loperamide HCl (Imodium) 2 mg PRN TID PRN PO DIARRHEA; Start 02/18/17 at 20:00 Multivitamins/ Calcium (Thera-M Plus) 1 tab DAILY PO Last administered on 09:07; Start 02/19/17 at 09:00 Fish Oil (Fish Oil) 1,000 mg DAILY PO Last administered on 02/27/17 09:07; Start 02/19/17 at 09:00 Polyethylene Glycol (miraLAX) 17 gm PRN DAILY PRN PO CONSTIPATION; Start at 07:15 Levothyroxine Sodium (Synthroid) 50 mcg DAILY07 PO Last administered on 05:35; Start 02/22/17 at 07:00 Escitalopram Oxalate (Lexapro) 5 mg DAILY PO Last administered on 02/27/17 09: 08; Start 02/22/17 at 09:00; Stop 02/27/17 at 15:52; Status DC Citalopram Hydrobromide (CeleXA) 10 mg DAILY PO ; Start 02/28/17 at 09:00 Active Scripts Active Reported Levothyroxine Sodium 25 Mcg Tablet 25 Mcg PO DAILY07 Miralax (Polyethylene Glycol 3350) 119 Gm Powder 17 Gm PO PRN DAILY PRN Loperamide (Loperamide Hcl) 2 Mg Tablet 2 Mg PO PRN TID PRN Bisacodyl 5 Mg Tablet.dr 10 Mg PO PRN DAILY PRN Alprazolam 0.25 Mg Tablet 0.25 Mg PO PRN TID PRN Tylenol (Acetaminophen) 325 Mg Tablet 650 Mg PO PRN Q4HRS PRN Seroquel (Quetiapine Fumarate) 50 Mg Tablet 50 Mg PO BID [place] 3 1,000 Mg Softgel ([place]-3 Fatty Acids/Fish Oil) 1 Each Capsule 1,000 Mg PO DAILY Centrum Silver Tablet (Multivits-Min/Fa/Lycopene/Lut) 1 Each Tablet 1 Tab PO DAILY Melatonin 5 Mg Tablet (Melatonin/Pyridoxine) 1 Each Tablet 10 Mg PO QHS Linzess (Linaclotide) 290 Mcg Capsule 290 Mcg PO DAILYWBKFT Folic Acid 0.4 Mg Tablet 0.4 Mg PO DAILY Aricept (Donepezil Hcl) 10 Mg Tablet 10 Mg PO QHS Restasis (Cyclosporine) 1 Each Droperette 1 Drop OU BID Vitamin B-12 (Cyanocobalamin (Vitamin B-12)) 500 Mcg Tablet 500 Mcg PO DAILY Vitamin D3 (Cholecalciferol (Vitamin D3)) 1,000 Unit Tablet 1,000 Unit PO DAILY Calcium 600 + Vit D 400 Tablet (Calcium Carbonate/Vitamin D3) 1 Each Tablet 1 Tab PO DAILY Atorvastatin Calcium 10 Mg Tablet 10 Mg PO QHS Aspir-Low (Aspirin) 81 Mg Tablet. 81 Mg PO DAILY AURELIANO MCCAULEY MD Feb 27, 2017 19:44
--- NOTE | 2017-02-28 01:16 | PN ---
DATE: 02/26/2017 This late entry for 02/26/2017 covers elements not covered in my initial note of 02/26/2017. SUBJECTIVE: I met with the patient at length the evening of 02/26/2017. Overall, the patient remains somewhat forgetful, minimizes most of her problems, but less anxious, less irritable, more accepting of being here. We processed this at some length. REVIEW OF SYSTEMS: No CV, , pulmonary, eye, ENT system symptoms on review. MENTAL STATUS EXAM: Oriented to herself and situation. Speech is coherent, abstraction fair, computation impaired, language function intact, attention span short. Mood and affect, somewhat anxious, but improved, slightly dysphoric at times. LABORATORY DATA: Reviewed. IMPRESSION: Unchanged from initial note. PLAN: Continue psychotropics mentioned in my initial note. Reviewed drug interactions. Risk/benefit ratio favors no further change at this time. MAN Malena MCCAULEY MD DR: CORY/harinder JOB#: [id number] / [id number]
[2017-02-28 06:01] VITALS: BP 163/72
[2017-02-28] MEDS: LEVOTHYROXINE 50 MCG TABLET PO SCH (07:28)
[2017-02-28] MEDS: LINACLOTIDE 145 MCG CAPSULE. PO SCH (07:29)
[2017-02-28] MEDS: CHOLECALCIFEROL (VITAMIN D3) 1,000 UNIT TABLET PO SCH (09:11)
[2017-02-28] MEDS: OMEGA-3 FATTY ACIDS/FISH OIL 1,000 MG CAPSULE. PO SCH (09:11)
[2017-02-28] MEDS: CALCIUM CARB/VIT D3 500/200 TABLET PO SCH (09:11)
[2017-02-28] MEDS: MULTIVITAMIN with MINERAL TABLET. PO SCH (09:11)
[2017-02-28] MEDS: FOLIC ACID 1 MG TABLET PO SCH (09:12)
[2017-02-28] MEDS: QUEtiapine 50 MG TABLET. PO SCH ×2 (09:12→19:30)
[2017-02-28] MEDS: CYANOCOBALAMIN (VITAMIN B-12) 250 MCG TABLET PO SCH (09:12)
[2017-02-28] MEDS: ASPIRIN ENTERIC COATED 81 MG TABLET.DR. PO SCH (09:12)
[2017-02-28] MEDS: cycloSPORINE 0.05% OPTH 1 DROP DROPERETTE OU SCH ×2 (09:12→19:29)
[2017-02-28] MEDS: CITALOPRAM 10 MG TABLET. PO SCH (09:13)
[2017-02-28 16:02] VITALS: BP 181/81
[2017-02-28] MEDS: MELATONIN 3 MG TABLET PO SCH (19:29)
[2017-02-28] MEDS: DONEPEZIL HCL 10 MG TABLET PO SCH (19:30)
[2017-02-28] MEDS: ATORVASTATIN CALCIUM 10 MG TABLET. PO SCH (19:30)
--- NOTE | 2017-02-28 19:42 | PDOC ---
Exam Alonso Demential Exam: Alonso Note: Please also refer to the separate dictated note~for this date of service dictated separately.~Patient seen individually. Discussed the patient with Nursing staff reviewed the chart.~Reviewed interim history and current functioning. Reviewed vital signs,~Labs/ Radiology~and current medications noted below. Continue current treatment with the changes noted in the dictated addendum note Assessment: Vital Signs: Vital Signs Date Time Temp Pulse Resp B/P (MAP) Pulse Ox O2 Delivery O2 Flow Rate FiO2 02/28/17 16:02 97.3 67 18 181/81 (114) 97 02/26/17 06:06 Room Air I&O Intake and Output 03/01/17 06:59 Intake Total 960 ml Balance 960 ml Intake Oral 960 ml Current Medications: Meds: Current Medications Acetaminophen (Tylenol) 650 mg PRN Q6HRS PRN PO PAIN / TEMP Last administered on 02/26/17 20:05; Start 02/18/17 at 19:45 Multi-Ingredient Ointment (Analgesic [place]) 1 kevin PRN QID PRN TP MUSCLE PAIN; Start 02/18/17 at 19:45 Al Hydroxide/Mg Hydroxide (Mylanta Plus Xs) 15 ml PRN AFTMEALHC PRN PO DYSPEPSIA; Start 02/18/17 at 19:45 Magnesium Hydroxide (Milk Of Magnesia) 2,400 mg PRN QHS PRN PO CONSTIPATION Last administered on 02/27/17 12:45; Start 02/18/17 at 19:45 Alprazolam (Xanax) 0.25 mg PRN TID PRN PO ANXIETY / AGITATION; Start 02/18/17 at 19:45 Donepezil HCl (Aricept) 10 mg QHS PO Last administered on 02/28/17 19:30; Start 02/18/17 at 21:00 Quetiapine Fumarate (SEROquel) 50 mg BID PO Last administered on 02/28/17 19: 30; Start 02/18/17 at 21:00 Melatonin 9 mg QHS PO Last administered on 02/28/17 19:29; Start 02/18/17 at 21 :00 Olanzapine (ZyPREXA ZYDIS) 5 mg PRN Q2HR PRN PO Psych; Start 02/18/17 at 19:45 Aspirin (Aspirin Enteric Coated) 81 mg DAILY PO Last administered on 02/28/17 09:12; Start 02/19/17 at 09:00 Atorvastatin Calcium (Lipitor) 10 mg QHS PO Last administered on 02/28/17 19: 30; Start 02/18/17 at 21:00 Bisacodyl (Dulcolax Tab) 10 mg PRN DAILY PRN PO CONSTIPATION; Start 02/18/17 at 20:00 Vitamin D (Vitamin D3) 1,000 unit DAILY PO Last administered on 02/28/17 09:11 ; Start 02/19/17 at 09:00 Cyclosporine (Restasis) 1 drop BID OU Last administered on 02/28/17 19:29; Start 02/18/17 at 21:00 Levothyroxine Sodium (Synthroid) 25 mcg DAILY07 PO Last administered on 06:13; Start 02/19/17 at 07:00; Stop 02/21/17 at 15:36; Status DC Polyethylene Glycol (miraLAX) 17 gm PRN DAILY PRN PO CONSTIPATION; Start at 20:00; Stop 02/19/17 at 07:15; Status DC Calcium/Vitamin D (Oscal D 500mg/ 200uts) 1 tab DAILY PO Last administered on 09:11; Start 02/19/17 at 09:00 Cyanocobalamin (Vitamin B-12) 500 mcg DAILY PO Last administered on 02/28/17 09:12; Start 02/19/17 at 09:00 Folic Acid (Folic Acid) 0.5 mg DAILY PO Last administered on 02/28/17 09:12; Start 02/19/17 at 09:00 Non-Formulary Medication 290 mcg DAILYWBKFT PO ; Start 02/19/17 at 08:00; Status UNV Loperamide HCl (Imodium) 2 mg PRN TID PRN PO DIARRHEA; Start 02/18/17 at 20:00 Multivitamins/ Calcium (Thera-M Plus) 1 tab DAILY PO Last administered on 09:11; Start 02/19/17 at 09:00 Fish Oil (Fish Oil) 1,000 mg DAILY PO Last administered on 02/28/17 09:11; Start 02/19/17 at 09:00 Polyethylene Glycol (miraLAX) 17 gm PRN DAILY PRN PO CONSTIPATION; Start at 07:15 Levothyroxine Sodium (Synthroid) 50 mcg DAILY07 PO Last administered on 07:28; Start 02/22/17 at 07:00 Escitalopram Oxalate (Lexapro) 5 mg DAILY PO Last administered on 02/27/17 09: 08; Start 02/22/17 at 09:00; Stop 02/27/17 at 15:52; Status DC Citalopram Hydrobromide (CeleXA) 10 mg DAILY PO Last administered on 02/28/17 09:13; Start 02/28/17 at 09:00 Active Scripts Active Reported Levothyroxine Sodium 25 Mcg Tablet 25 Mcg PO DAILY07 Miralax (Polyethylene Glycol 3350) 119 Gm Powder 17 Gm PO PRN DAILY PRN Loperamide (Loperamide Hcl) 2 Mg Tablet 2 Mg PO PRN TID PRN Bisacodyl 5 Mg Tablet.dr 10 Mg PO PRN DAILY PRN Alprazolam 0.25 Mg Tablet 0.25 Mg PO PRN TID PRN Tylenol (Acetaminophen) 325 Mg Tablet 650 Mg PO PRN Q4HRS PRN Seroquel (Quetiapine Fumarate) 50 Mg Tablet 50 Mg PO BID [place] 3 1,000 Mg Softgel ([place]-3 Fatty Acids/Fish Oil) 1 Each Capsule 1,000 Mg PO DAILY Centrum Silver Tablet (Multivits-Min/Fa/Lycopene/Lut) 1 Each Tablet 1 Tab PO DAILY Melatonin 5 Mg Tablet (Melatonin/Pyridoxine) 1 Each Tablet 10 Mg PO QHS Linzess (Linaclotide) 290 Mcg Capsule 290 Mcg PO DAILYWBKFT Folic Acid 0.4 Mg Tablet 0.4 Mg PO DAILY Aricept (Donepezil Hcl) 10 Mg Tablet 10 Mg PO QHS Restasis (Cyclosporine) 1 Each Droperette 1 Drop OU BID Vitamin B-12 (Cyanocobalamin (Vitamin B-12)) 500 Mcg Tablet 500 Mcg PO DAILY Vitamin D3 (Cholecalciferol (Vitamin D3)) 1,000 Unit Tablet 1,000 Unit PO DAILY Calcium 600 + Vit D 400 Tablet (Calcium Carbonate/Vitamin D3) 1 Each Tablet 1 Tab PO DAILY Atorvastatin Calcium 10 Mg Tablet 10 Mg PO QHS Aspir-Low (Aspirin) 81 Mg Tablet.dr 81 Mg PO DAILY PARISA,MAN M MD Feb 28, 2017 19:42
[2017-02-28] MEDS ORDERED: CITA10TA4 PO (23:16)
[2017-02-28] MEDS ORDERED: MAG360OR24 PO (23:22)
[2017-02-28] MEDS ORDERED: MAGN400O7 PO (23:26)
[2017-02-28] MEDS ORDERED: MAGN2400 PO (23:29)
[2017-02-28] MEDS ORDERED: METH29OI TP (23:32)
[2017-02-28] MEDS ORDERED: OLAN5TAB5 PO (23:35)
--- NOTE | 2017-03-01 02:00 | PN ---
DATE: 02/28/2017 This late entry on 02/27/2017 covers elements not covered in my initial note of 02/27/2017. SUBJECTIVE: I met with the patient in the evening of 02/27/2017 at some length. She has otherwise been pleasant, talking about going to a different long term when she gets back to [facility] and I processed this with her at some length. She is concerned that her family would have to drive long distances and they would resent this, but we addressed how some of those decisions would have to be made by the family and they expressed concerns, certainly changes could be made, but not just because the patient perceives it to a certain way. She is able to understand this. REVIEW OF SYSTEMS: No CV, , pulmonary, eye, ENT system symptoms on review. Reliability fair. MENTAL STATUS EXAM: Oriented to herself and situation. Speech is coherent, abstraction fair, computation impaired, language function intact, attention span short. Mood and affect less anxious, somewhat improved. LABORATORY DATA: Reviewed. IMPRESSION: Unchanged from initial note. PLAN: Continue current psychotropics mentioned in my initial note, reviewed drug interaction, risk/benefit ratio favors no further change. MAN Malena MCCAULEY MD DR: CORY/harinder JOB#: [id number] / [id number]
[2017-03-01] MEDS: LEVOTHYROXINE 50 MCG TABLET PO SCH (05:35)
[2017-03-01] MEDS: LINACLOTIDE 145 MCG CAPSULE. PO SCH (05:36)
[2017-03-01 06:05] VITALS: BP 143/63
[2017-03-01] MEDS: CYANOCOBALAMIN (VITAMIN B-12) 250 MCG TABLET PO SCH (08:30)
[2017-03-01] MEDS: MULTIVITAMIN with MINERAL TABLET. PO SCH (08:31)
[2017-03-01] MEDS: cycloSPORINE 0.05% OPTH 1 DROP DROPERETTE OU SCH ×2 (08:31→19:50)
[2017-03-01] MEDS: CALCIUM CARB/VIT D3 500/200 TABLET PO SCH (08:31)
[2017-03-01] MEDS: FOLIC ACID 1 MG TABLET PO SCH (08:31)
[2017-03-01] MEDS: ASPIRIN ENTERIC COATED 81 MG TABLET.DR. PO SCH (08:31)
[2017-03-01] MEDS: QUEtiapine 50 MG TABLET. PO SCH ×2 (08:31→19:48)
[2017-03-01] MEDS: CHOLECALCIFEROL (VITAMIN D3) 1,000 UNIT TABLET PO SCH (08:31)
[2017-03-01] MEDS: OMEGA-3 FATTY ACIDS/FISH OIL 1,000 MG CAPSULE. PO SCH (08:31)
[2017-03-01] MEDS: CITALOPRAM 10 MG TABLET. PO SCH (08:31)
[2017-03-01 16:13] VITALS: BP 161/81
[2017-03-01] MEDS: DONEPEZIL HCL 10 MG TABLET PO SCH (19:48)
[2017-03-01] MEDS: ATORVASTATIN CALCIUM 10 MG TABLET. PO SCH (19:50)
[2017-03-01] MEDS: MELATONIN 3 MG TABLET PO SCH (19:50)
--- NOTE | 2017-03-01 19:52 | PDOC ---
Exam Alonso Demential Exam: Alonso Note: Please also refer to the separate dictated note~for this date of service dictated separately.~Patient seen individually. Discussed the patient with Nursing staff reviewed the chart.~Reviewed interim history and current functioning. Reviewed vital signs,~Labs/ Radiology~and current medications noted below. Continue current treatment with the changes noted in the dictated addendum note Assessment: Vital Signs: Vital Signs Date Time Temp Pulse Resp B/P (MAP) Pulse Ox O2 Delivery O2 Flow Rate FiO2 03/01/17 16:13 98.4 86 18 161/81 (107) 96 02/26/17 06:06 Room Air I&O Intake and Output 03/02/17 07:00 Intake Total 960 ml Balance 960 ml Intake Oral 960 ml Current Medications: Meds: Current Medications Acetaminophen (Tylenol) 650 mg PRN Q6HRS PRN PO PAIN / TEMP Last administered on 02/26/17 20:05; Start 02/18/17 at 19:45 Multi-Ingredient Ointment (Analgesic [place]) 1 abdoulaye PRN QID PRN TP MUSCLE PAIN; Start 02/18/17 at 19:45 Al Hydroxide/Mg Hydroxide (Mylanta Plus Xs) 15 ml PRN AFTMEALHC PRN PO DYSPEPSIA; Start 02/18/17 at 19:45 Magnesium Hydroxide (Milk Of Magnesia) 2,400 mg PRN QHS PRN PO CONSTIPATION Last administered on 02/27/17 12:45; Start 02/18/17 at 19:45 Alprazolam (Xanax) 0.25 mg PRN TID PRN PO ANXIETY / AGITATION; Start 02/18/17 at 19:45 Donepezil HCl (Aricept) 10 mg QHS PO Last administered on 03/01/17 19:48; Start 02/18/17 at 21:00 Quetiapine Fumarate (SEROquel) 50 mg BID PO Last administered on 03/01/17 19: 48; Start 02/18/17 at 21:00 Melatonin 9 mg QHS PO Last administered on 03/01/17 19:50; Start 02/18/17 at 21 :00 Olanzapine (ZyPREXA ZYDIS) 5 mg PRN Q2HR PRN PO Psych; Start 02/18/17 at 19:45 Aspirin (Aspirin Enteric Coated) 81 mg DAILY PO Last administered on 03/01/17 08:31; Start 02/19/17 at 09:00 Atorvastatin Calcium (Lipitor) 10 mg QHS PO Last administered on 03/01/17 19: 50; Start 02/18/17 at 21:00 Bisacodyl (Dulcolax Tab) 10 mg PRN DAILY PRN PO CONSTIPATION; Start 02/18/17 at 20:00 Vitamin D (Vitamin D3) 1,000 unit DAILY PO Last administered on 03/01/17 08:31 ; Start 02/19/17 at 09:00 Cyclosporine (Restasis) 1 drop BID OU Last administered on 03/01/17 19:50; Start 02/18/17 at 21:00 Levothyroxine Sodium (Synthroid) 25 mcg DAILY07 PO Last administered on 06:13; Start 02/19/17 at 07:00; Stop 02/21/17 at 15:36; Status DC Polyethylene Glycol (miraLAX) 17 gm PRN DAILY PRN PO CONSTIPATION; Start at 20:00; Stop 02/19/17 at 07:15; Status DC Calcium/Vitamin D (Oscal D 500mg/ 200uts) 1 tab DAILY PO Last administered on 08:31; Start 02/19/17 at 09:00 Cyanocobalamin (Vitamin B-12) 500 mcg DAILY PO Last administered on 03/01/17 08:30; Start 02/19/17 at 09:00 Folic Acid (Folic Acid) 0.5 mg DAILY PO Last administered on 03/01/17 08:31; Start 02/19/17 at 09:00 Non-Formulary Medication 290 mcg DAILYWBKFT PO ; Start 02/19/17 at 08:00; Status UNV Loperamide HCl (Imodium) 2 mg PRN TID PRN PO DIARRHEA; Start 02/18/17 at 20:00 Multivitamins/ Calcium (Thera-M Plus) 1 tab DAILY PO Last administered on 08:31; Start 02/19/17 at 09:00 Fish Oil (Fish Oil) 1,000 mg DAILY PO Last administered on 03/01/17 08:31; Start 02/19/17 at 09:00 Polyethylene Glycol (miraLAX) 17 gm PRN DAILY PRN PO CONSTIPATION; Start at 07:15 Levothyroxine Sodium (Synthroid) 50 mcg DAILY07 PO Last administered on 05:35; Start 02/22/17 at 07:00 Escitalopram Oxalate (Lexapro) 5 mg DAILY PO Last administered on 02/27/17 09: 08; Start 02/22/17 at 09:00; Stop 02/27/17 at 15:52; Status DC Citalopram Hydrobromide (CeleXA) 10 mg DAILY PO Last administered on 03/01/17 08:31; Start 02/28/17 at 09:00 Active Scripts Active Reported Zyprexa Zydis (Olanzapine) 5 Mg Tab.rapdis 5 Mg PO PRN Q2HR PRN Analgesic [place] (Methyl Salicylate/Menthol) 28 Gm Oint...g. 1 Abdoulaye TP PRN QID PRN Milk Of Magnesia (Magnesium Hydroxide) 2,400 Mg/10 Ml Oral.susp 2,400 Mg PO PRN QHS PRN Milk Of Magnesia (Magnesium Hydroxide) 400 Mg/5 Ml Oral.susp 2,400 Mg PO HS PRN Alum-Mag Hydroxide-Simeth Liq (Mag Hydrox/Al Hydrox/Simeth) 360 Ml Oral.susp 15 Ml PO PRN AFTMEALHC PRN Citalopram Hbr (Citalopram Hydrobromide) 10 Mg Tablet 10 Mg PO DAILY Levothyroxine Sodium 25 Mcg Tablet 25 Mcg PO DAILY07 Miralax (Polyethylene Glycol 3350) 119 Gm Powder 17 Gm PO PRN DAILY PRN Loperamide (Loperamide Hcl) 2 Mg Tablet 2 Mg PO PRN TID PRN Bisacodyl 5 Mg Tablet.dr 10 Mg PO PRN DAILY PRN Alprazolam 0.25 Mg Tablet 0.25 Mg PO PRN TID PRN Tylenol (Acetaminophen) 325 Mg Tablet 650 Mg PO PRN Q4HRS PRN Seroquel (Quetiapine Fumarate) 50 Mg Tablet 50 Mg PO BID [place] 3 1,000 Mg Softgel ([place]-3 Fatty Acids/Fish Oil) 1 Each Capsule 1,000 Mg PO DAILY Centrum Silver Tablet (Multivits-Min/Fa/Lycopene/Lut) 1 Each Tablet 1 Tab PO DAILY Melatonin 5 Mg Tablet (Melatonin/Pyridoxine) 1 Each Tablet 10 Mg PO QHS Linzess (Linaclotide) 290 Mcg Capsule 290 Mcg PO DAILYWBKFT Folic Acid 0.4 Mg Tablet 0.4 Mg PO DAILY Aricept (Donepezil Hcl) 10 Mg Tablet 10 Mg PO QHS Restasis (Cyclosporine) 1 Each Droperette 1 Drop OU BID Vitamin B-12 (Cyanocobalamin (Vitamin B-12)) 500 Mcg Tablet 500 Mcg PO DAILY Vitamin D3 (Cholecalciferol (Vitamin D3)) 1,000 Unit Tablet 1,000 Unit PO DAILY Calcium 600 + Vit D 400 Tablet (Calcium Carbonate/Vitamin D3) 1 Each Tablet 1 Tab PO DAILY Atorvastatin Calcium 10 Mg Tablet 10 Mg PO QHS Aspir-Low (Aspirin) 81 Mg Tablet. 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
[2017-03-01] MEDS: MAGNESIUM HYDROXIDE 2,400 MG/30 ML ORAL.SUSP. PO PRN (20:17)
--- NOTE | 2017-03-02 03:27 | PN ---
DATE: 02/28/2017 PSYCHIATRIC PROGRESS NOTE This late entry of 02/28/2017 covers elements not covered in my initial note of 02/28/2017. I met with the patient evening of 02/28/2017 Per nursing report, the patient remains somewhat anxious, repetitive about her discharge plans, but redirects a little more accepting of the changes in her living arrangements as I met with her. REVIEW OF SYSTEMS: No CV, , pulmonary, eye system symptoms on review. Complains of feeling cold, had a jacket on her. MENTAL STATUS EXAM: Reasonably oriented to herself and situation. Speech is coherent, abstraction fair, computation impaired, language function intact, attention span short, mood and affect are improved, pleasant and verbal with me, smiling, appropriate. LABORATORY DATA: Reviewed. IMPRESSION: Unchanged from initial note. PLAN: Continue current psychotropics. Reviewed drug interactions. Risk/benefit ratio favors no further change. AURELIANO MCCAULEY MD DR: CORY/harinder JOB#: [id number] / [id number]
[2017-03-02] MEDS: LEVOTHYROXINE 50 MCG TABLET PO SCH (05:22)
[2017-03-02] MEDS: LINACLOTIDE 145 MCG CAPSULE. PO SCH (05:22)
[2017-03-02 05:55] VITALS: BP 182/73
[2017-03-02] MEDS: MULTIVITAMIN with MINERAL TABLET. PO SCH (07:51)
[2017-03-02] MEDS: cycloSPORINE 0.05% OPTH 1 DROP DROPERETTE OU SCH ×2 (07:51→19:49)
[2017-03-02] MEDS: OMEGA-3 FATTY ACIDS/FISH OIL 1,000 MG CAPSULE. PO SCH (07:51)
[2017-03-02] MEDS: FOLIC ACID 1 MG TABLET PO SCH (07:52)
[2017-03-02] MEDS: CYANOCOBALAMIN (VITAMIN B-12) 250 MCG TABLET PO SCH (07:52)
[2017-03-02] MEDS: ASPIRIN ENTERIC COATED 81 MG TABLET.DR. PO SCH (07:52)
[2017-03-02] MEDS: QUEtiapine 50 MG TABLET. PO SCH ×2 (07:52→19:49)
[2017-03-02] MEDS: CALCIUM CARB/VIT D3 500/200 TABLET PO SCH (07:52)
[2017-03-02] MEDS: CITALOPRAM 10 MG TABLET. PO SCH (07:52)
[2017-03-02] MEDS: CHOLECALCIFEROL (VITAMIN D3) 1,000 UNIT TABLET PO SCH (07:52)
[2017-03-02 16:25] VITALS: BP 160/83
[2017-03-02] MEDS: ATORVASTATIN CALCIUM 10 MG TABLET. PO SCH (19:48)
[2017-03-02] MEDS: MELATONIN 3 MG TABLET PO SCH (19:49)
[2017-03-02] MEDS: DONEPEZIL HCL 10 MG TABLET PO SCH (19:49)
--- NOTE | 2017-03-02 20:07 | PDOC ---
Exam Alonso Demential Exam: Alonso Note: Please also refer to the separate dictated note~for this date of service dictated separately.~Patient seen individually. Discussed the patient with Nursing staff reviewed the chart.~Reviewed interim history and current functioning. Reviewed vital signs,~Labs/ Radiology~and current medications noted below. Continue current treatment with the changes noted in the dictated addendum note Assessment: Vital Signs: Vital Signs Date Time Temp Pulse Resp B/P (MAP) Pulse Ox O2 Delivery O2 Flow Rate FiO2 03/02/17 16:25 98.2 74 18 160/83 (108) 98 02/26/17 06:06 Room Air I&O Intake and Output 03/03/17 06:59 Intake Total 900 ml Balance 900 ml Intake Oral 900 ml Current Medications: Meds: Current Medications Acetaminophen (Tylenol) 650 mg PRN Q6HRS PRN PO PAIN / TEMP Last administered on 02/26/17 20:05; Start 02/18/17 at 19:45 Multi-Ingredient Ointment (Analgesic Newcomb) 1 abdoulaye PRN QID PRN TP MUSCLE PAIN; Start 02/18/17 at 19:45 Al Hydroxide/Mg Hydroxide (Mylanta Plus Xs) 15 ml PRN AFTMEALHC PRN PO DYSPEPSIA; Start 02/18/17 at 19:45 Magnesium Hydroxide (Milk Of Magnesia) 2,400 mg PRN QHS PRN PO CONSTIPATION Last administered on 03/01/17 20:17; Start 02/18/17 at 19:45 Alprazolam (Xanax) 0.25 mg PRN TID PRN PO ANXIETY / AGITATION; Start 02/18/17 at 19:45 Donepezil HCl (Aricept) 10 mg QHS PO Last administered on 03/02/17 19:49; Start 02/18/17 at 21:00 Quetiapine Fumarate (SEROquel) 50 mg BID PO Last administered on 03/02/17 19: 49; Start 02/18/17 at 21:00 Melatonin 9 mg QHS PO Last administered on 03/02/17 19:49; Start 02/18/17 at 21 :00 Olanzapine (ZyPREXA ZYDIS) 5 mg PRN Q2HR PRN PO Psych; Start 02/18/17 at 19:45 Aspirin (Aspirin Enteric Coated) 81 mg DAILY PO Last administered on 03/02/17 07:52; Start 02/19/17 at 09:00 Atorvastatin Calcium (Lipitor) 10 mg QHS PO Last administered on 03/02/17 19: 48; Start 02/18/17 at 21:00 Bisacodyl (Dulcolax Tab) 10 mg PRN DAILY PRN PO CONSTIPATION Last administered on 03/01/17 20:17; Start 02/18/17 at 20:00 Vitamin D (Vitamin D3) 1,000 unit DAILY PO Last administered on 03/02/17 07:52 ; Start 02/19/17 at 09:00 Cyclosporine (Restasis) 1 drop BID OU Last administered on 03/02/17 19:49; Start 02/18/17 at 21:00 Levothyroxine Sodium (Synthroid) 25 mcg DAILY07 PO Last administered on 06:13; Start 02/19/17 at 07:00; Stop 02/21/17 at 15:36; Status DC Polyethylene Glycol (miraLAX) 17 gm PRN DAILY PRN PO CONSTIPATION; Start at 20:00; Stop 02/19/17 at 07:15; Status DC Calcium/Vitamin D (Oscal D 500mg/ 200uts) 1 tab DAILY PO Last administered on 07:52; Start 02/19/17 at 09:00 Cyanocobalamin (Vitamin B-12) 500 mcg DAILY PO Last administered on 03/02/17 07:52; Start 02/19/17 at 09:00 Folic Acid (Folic Acid) 0.5 mg DAILY PO Last administered on 03/02/17 07:52; Start 02/19/17 at 09:00 Non-Formulary Medication 290 mcg DAILYWBKFT PO ; Start 02/19/17 at 08:00; Status UNV Loperamide HCl (Imodium) 2 mg PRN TID PRN PO DIARRHEA Last administered on 03/02 14:18; Start 02/18/17 at 20:00 Multivitamins/ Calcium (Thera-M Plus) 1 tab DAILY PO Last administered on 07:51; Start 02/19/17 at 09:00 Fish Oil (Fish Oil) 1,000 mg DAILY PO Last administered on 03/02/17 07:51; Start 02/19/17 at 09:00 Polyethylene Glycol (miraLAX) 17 gm PRN DAILY PRN PO CONSTIPATION; Start at 07:15 Levothyroxine Sodium (Synthroid) 50 mcg DAILY07 PO Last administered on 05:22; Start 02/22/17 at 07:00 Escitalopram Oxalate (Lexapro) 5 mg DAILY PO Last administered on 02/27/17 09: 08; Start 02/22/17 at 09:00; Stop 02/27/17 at 15:52; Status DC Citalopram Hydrobromide (CeleXA) 10 mg DAILY PO Last administered on 03/02/17 07:52; Start 02/28/17 at 09:00 Amlodipine Besylate (Norvasc) 10 mg DAILY PO ; Start 03/03/17 at 09:00 Active Scripts Active Reported Zyprexa Zydis (Olanzapine) 5 Mg Tab.rapdis 5 Mg PO PRN Q2HR PRN Analgesic Newcomb (Methyl Salicylate/Menthol) 28 Gm Oint...g. 1 Abdoulaye TP PRN QID PRN Milk Of Magnesia (Magnesium Hydroxide) 2,400 Mg/10 Ml Oral.susp 2,400 Mg PO PRN QHS PRN Milk Of Magnesia (Magnesium Hydroxide) 400 Mg/5 Ml Oral.susp 2,400 Mg PO HS PRN Alum-Mag Hydroxide-Simeth Liq (Mag Hydrox/Al Hydrox/Simeth) 360 Ml Oral.susp 15 Ml PO PRN AFTMEALHC PRN Citalopram Hbr (Citalopram Hydrobromide) 10 Mg Tablet 10 Mg PO DAILY Levothyroxine Sodium 25 Mcg Tablet 25 Mcg PO DAILY07 Miralax (Polyethylene Glycol 3350) 119 Gm Powder 17 Gm PO PRN DAILY PRN Loperamide (Loperamide Hcl) 2 Mg Tablet 2 Mg PO PRN TID PRN Bisacodyl 5 Mg Tablet.dr 10 Mg PO PRN DAILY PRN Alprazolam 0.25 Mg Tablet 0.25 Mg PO PRN TID PRN Tylenol (Acetaminophen) 325 Mg Tablet 650 Mg PO PRN Q4HRS PRN Seroquel (Quetiapine Fumarate) 50 Mg Tablet 50 Mg PO BID [place] 3 1,000 Mg Softgel ([place]-3 Fatty Acids/Fish Oil) 1 Each Capsule 1,000 Mg PO DAILY Centrum Silver Tablet (Multivits-Min/Fa/Lycopene/Lut) 1 Each Tablet 1 Tab PO DAILY Melatonin 5 Mg Tablet (Melatonin/Pyridoxine) 1 Each Tablet 10 Mg PO QHS Linzess (Linaclotide) 290 Mcg Capsule 290 Mcg PO DAILYWBKFT Folic Acid 0.4 Mg Tablet 0.4 Mg PO DAILY Aricept (Donepezil Hcl) 10 Mg Tablet 10 Mg PO QHS Restasis (Cyclosporine) 1 Each Droperette 1 Drop OU BID Vitamin B-12 (Cyanocobalamin (Vitamin B-12)) 500 Mcg Tablet 500 Mcg PO DAILY Vitamin D3 (Cholecalciferol (Vitamin D3)) 1,000 Unit Tablet 1,000 Unit PO DAILY Calcium 600 + Vit D 400 Tablet (Calcium Carbonate/Vitamin D3) 1 Each Tablet 1 Tab PO DAILY Atorvastatin Calcium 10 Mg Tablet 10 Mg PO QHS Aspir-Low (Aspirin) 81 Mg Tablet. 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
[2017-03-03] MEDS ORDERED: LEVO50TA5 PO (01:54)
[2017-03-03 05:46] VITALS: BP 144/94
[2017-03-03] MEDS: LEVOTHYROXINE 50 MCG TABLET PO SCH (05:57)
[2017-03-03] MEDS: LINACLOTIDE 145 MCG CAPSULE. PO SCH (05:57)
--- NOTE | 2017-03-03 07:23 | PN ---
DATE: 03/01/2017 PSYCHIATRIC PROGRESS NOTE This is a late entry of date of service 03/01/2017. SUBJECTIVE: The patient was seen individually on the evening of 03/01/2017. The patient has been fairly cooperative, gets anxious, somewhat fixated on her next placement, wanting to go back to her original placement, though social service staff state that is not feasible per family. She talked about her first , Mr. Pinedo and then about marrying Mr. Driscoll. Gets confused to how long she has been to him. REVIEW OF SYSTEMS: No CV, , eye, ENT or pulmonary system symptoms on review. MENTAL STATUS EXAM: Oriented to herself and situation. Speech is coherent, abstraction fair, computation impaired, language function intact, attention span short. Mood and affect showing improvement, less anxious, short term memory is impaired. No suicidal or homicidal ideation. DIAGNOSIS: Mentioned in my initial note. PLAN: Reviewed current psychotropics. Risk and benefit ratio favors no change at this time. MAN Malena MCCAULEY MD DR: CORY/harinder JOB#: [id number] / [id number]
[2017-03-03] MEDS: OMEGA-3 FATTY ACIDS/FISH OIL 1,000 MG CAPSULE. PO SCH (08:00)
[2017-03-03] MEDS: MULTIVITAMIN with MINERAL TABLET. PO SCH (08:00)
[2017-03-03] MEDS: CYANOCOBALAMIN (VITAMIN B-12) 250 MCG TABLET PO SCH (08:00)
[2017-03-03] MEDS: CHOLECALCIFEROL (VITAMIN D3) 1,000 UNIT TABLET PO SCH (08:01)
[2017-03-03] MEDS: cycloSPORINE 0.05% OPTH 1 DROP DROPERETTE OU SCH (08:01)
[2017-03-03] MEDS: QUEtiapine 50 MG TABLET. PO SCH (08:01)
[2017-03-03] MEDS: FOLIC ACID 1 MG TABLET PO SCH (08:01)
[2017-03-03] MEDS: CITALOPRAM 10 MG TABLET. PO SCH (08:01)
[2017-03-03] MEDS: CALCIUM CARB/VIT D3 500/200 TABLET PO SCH (08:01)
[2017-03-03] MEDS: ASPIRIN ENTERIC COATED 81 MG TABLET.DR. PO SCH (08:01)
[2017-03-03 08:13] VITALS: BP 144/94
[2017-03-03] MEDS ORDERED: amLODIPine BESYLATE 10 MG TABLET PO SCH (09:00)
[2017-03-03] MEDS ORDERED: AMLO10TA2 PO (09:38)
--- NOTE | 2017-03-04 03:50 | PN ---
DATE: 03/02/2017 This late entry for 03/02/2017, covers elements not covered in my initial note of 03/02/2017. SUBJECTIVE: The patient was staffed at a treatment team meeting with the entire team, morning of 03/02/2017 seen individually in the evening of 03/02/2017. Overall, the patient has been quiet, calm, compliant, had some short term memory deficits. Sleep is fair. Appetite 90%, slept 7 hours. REVIEW OF SYSTEMS: No CV, , pulmonary, eye system symptoms on review. MENTAL STATUS EXAM: Oriented to herself and situation. Speech is coherent, abstraction fair, computation impaired, language function intact, attention span short, mood and affect showing improvement, less anxious, less obsessive and less irritable. LABORATORY DATA: Reviewed. IMPRESSION: Unchanged from initial note. PLAN: Continue current psychotropics mentioned in my initial note. Reviewed drug interactions. Risk/benefit ratio favors no further change. AURELIANO MCCAULEY MD DR: CORY/harinder JOB#: [id number] / [id number]
--- NOTE | 2017-03-04 08:33 | PDOC ---
Exam Alonso Demential Exam: Alonso Note: Please also refer to the separate dictated note~for this date of service dictated separately.~Patient seen individually. Discussed the patient with Nursing staff reviewed the chart.~Reviewed interim history and current functioning. Reviewed vital signs,~Labs/ Radiology~and current medications noted below. Continue current treatment with the changes noted in the dictated addendum note Assessment: Vital Signs: Vital Signs Date Time Temp Pulse Resp B/P (MAP) Pulse Ox O2 Delivery O2 Flow Rate FiO2 03/03/17 08:13 73 144/94 03/03/17 05:46 97.6 17 97 Room Air Current Medications: Meds: Current Medications Acetaminophen (Tylenol) 650 mg PRN Q6HRS PRN PO PAIN / TEMP Last administered on 02/26/17 20:05; Start 02/18/17 at 19:45; Stop 03/03/17 at 13:39; Status DC Multi-Ingredient Ointment (Analgesic Gilman) 1 abduolaye PRN QID PRN TP MUSCLE PAIN; Start 02/18/17 at 19:45; Stop 03/03/17 at 13:39; Status DC Al Hydroxide/Mg Hydroxide (Mylanta Plus Xs) 15 ml PRN AFTMEALHC PRN PO DYSPEPSIA; Start 02/18/17 at 19:45; Stop 03/03/17 at 13:39; Status DC Magnesium Hydroxide (Milk Of Magnesia) 2,400 mg PRN QHS PRN PO CONSTIPATION Last administered on 03/01/17 20:17; Start 02/18/17 at 19:45; Stop 03/03/17 at 13:39; Status DC Alprazolam (Xanax) 0.25 mg PRN TID PRN PO ANXIETY / AGITATION; Start 02/18/17 at 19:45; Stop 03/03/17 at 13:39; Status DC Donepezil HCl (Aricept) 10 mg QHS PO Last administered on 03/02/17 19:49; Start 02/18/17 at 21:00; Stop 03/03/17 at 13:39; Status DC Quetiapine Fumarate (SEROquel) 50 mg BID PO Last administered on 03/03/17 08: 01; Start 02/18/17 at 21:00; Stop 03/03/17 at 13:39; Status DC Melatonin 9 mg QHS PO Last administered on 03/02/17 19:49; Start 02/18/17 at 21 :00; Stop 03/03/17 at 13:39; Status DC Olanzapine (ZyPREXA ZYDIS) 5 mg PRN Q2HR PRN PO Psych; Start 02/18/17 at 19:45; Stop 03/03/17 at 13:39; Status DC Aspirin (Aspirin Enteric Coated) 81 mg DAILY PO Last administered on 03/03/17 08:01; Start 02/19/17 at 09:00; Stop 03/03/17 at 13:39; Status DC Atorvastatin Calcium (Lipitor) 10 mg QHS PO Last administered on 03/02/17 19: 48; Start 02/18/17 at 21:00; Stop 03/03/17 at 13:39; Status DC Bisacodyl (Dulcolax Tab) 10 mg PRN DAILY PRN PO CONSTIPATION Last administered on 03/01/17 20:17; Start 02/18/17 at 20:00; Stop 03/03/17 at 13:39; Status DC Vitamin D (Vitamin D3) 1,000 unit DAILY PO Last administered on 03/03/17 08:01 ; Start 02/19/17 at 09:00; Stop 03/03/17 at 13:39; Status DC Cyclosporine (Restasis) 1 drop BID OU Last administered on 03/03/17 08:01; Start 02/18/17 at 21:00; Stop 03/03/17 at 13:39; Status DC Levothyroxine Sodium (Synthroid) 25 mcg DAILY07 PO Last administered on 06:13; Start 02/19/17 at 07:00; Stop 02/21/17 at 15:36; Status DC Polyethylene Glycol (miraLAX) 17 gm PRN DAILY PRN PO CONSTIPATION; Start at 20:00; Stop 02/19/17 at 07:15; Status DC Calcium/Vitamin D (Oscal D 500mg/ 200uts) 1 tab DAILY PO Last administered on 08:01; Start 02/19/17 at 09:00; Stop 03/03/17 at 13:39; Status DC Cyanocobalamin (Vitamin B-12) 500 mcg DAILY PO Last administered on 03/03/17 08:00; Start 02/19/17 at 09:00; Stop 03/03/17 at 13:39; Status DC Folic Acid (Folic Acid) 0.5 mg DAILY PO Last administered on 03/03/17 08:01; Start 02/19/17 at 09:00; Stop 03/03/17 at 13:39; Status DC Non-Formulary Medication 290 mcg DAILYWBKFT PO Last administered on 03/03/17 05:57; Start 02/19/17 at 08:00; Stop 03/03/17 at 13:39; Status UNV Loperamide HCl (Imodium) 2 mg PRN TID PRN PO DIARRHEA Last administered on 03/02 14:18; Start 02/18/17 at 20:00; Stop 03/03/17 at 13:39; Status DC Multivitamins/ Calcium (Thera-M Plus) 1 tab DAILY PO Last administered on 08:00; Start 02/19/17 at 09:00; Stop 03/03/17 at 13:39; Status DC Fish Oil (Fish Oil) 1,000 mg DAILY PO Last administered on 03/03/17 08:00; Start 02/19/17 at 09:00; Stop 03/03/17 at 13:39; Status DC Polyethylene Glycol (miraLAX) 17 gm PRN DAILY PRN PO CONSTIPATION; Start at 07:15; Stop 03/03/17 at 13:39; Status DC Levothyroxine Sodium (Synthroid) 50 mcg DAILY07 PO Last administered on 05:57; Start 02/22/17 at 07:00; Stop 03/03/17 at 13:39; Status DC Escitalopram Oxalate (Lexapro) 5 mg DAILY PO Last administered on 02/27/17 09: 08; Start 02/22/17 at 09:00; Stop 02/27/17 at 15:52; Status DC Citalopram Hydrobromide (CeleXA) 10 mg DAILY PO Last administered on 03/03/17 08:01; Start 02/28/17 at 09:00; Stop 03/03/17 at 13:39; Status DC Amlodipine Besylate (Norvasc) 10 mg DAILY PO Last administered on 03/03/17t 08: 13; Start 03/03/17 at 09:00; Stop 03/03/17 at 13:39; Status DC Active Scripts Active Reported Amlodipine Besylate 10 Mg Tablet 1 Tab PO DAILY Levothyroxine Sodium 50 Mcg Tablet 50 Mcg PO DAILYAC Zyprexa Zydis (Olanzapine) 5 Mg Tab.rapdis 5 Mg PO PRN Q2HR PRN MDD 10mg Analgesic [place] (Methyl Salicylate/Menthol) 28 Gm Oint...g. 1 Abdoulaye TP PRN QID PRN Milk Of Magnesia (Magnesium Hydroxide) 400 Mg/5 Ml Oral.susp 2,400 Mg PO HS PRN Alum-Mag Hydroxide-Simeth Liq (Mag Hydrox/Al Hydrox/Simeth) 360 Ml Oral.susp 15 Ml PO PRN AFTMEALHC PRN Citalopram Hbr (Citalopram Hydrobromide) 10 Mg Tablet 10 Mg PO DAILY Miralax (Polyethylene Glycol 3350) 119 Gm Powder 17 Gm PO PRN DAILY PRN Loperamide (Loperamide Hcl) 2 Mg Tablet 2 Mg PO PRN TID PRN Bisacodyl 5 Mg Tablet.dr 10 Mg PO PRN DAILY PRN Alprazolam 0.25 Mg Tablet 0.25 Mg PO PRN TID PRN Tylenol (Acetaminophen) 325 Mg Tablet 650 Mg PO PRN Q6HRS PRN Seroquel (Quetiapine Fumarate) 50 Mg Tablet 50 Mg PO BID [place] 3 1,000 Mg Softgel ([place]-3 Fatty Acids/Fish Oil) 1 Each Capsule 1,000 Mg PO DAILY Centrum Silver Tablet (Multivits-Min/Fa/Lycopene/Lut) 1 Each Tablet 1 Tab PO DAILY Melatonin 5 Mg Tablet (Melatonin/Pyridoxine) 1 Each Tablet 10 Mg PO QHS Linzess (Linaclotide) 290 Mcg Capsule 290 Mcg PO DAILYWBKFT Folic Acid 0.4 Mg Tablet 0.4 Mg PO DAILY Aricept (Donepezil Hcl) 10 Mg Tablet 10 Mg PO QHS Restasis (Cyclosporine) 1 Each Droperette 1 Drop OU BID Vitamin B-12 (Cyanocobalamin (Vitamin B-12)) 500 Mcg Tablet 500 Mcg PO DAILY Vitamin D3 (Cholecalciferol (Vitamin D3)) 1,000 Unit Tablet 1,000 Unit PO DAILY Calcium 600 + Vit D 400 Tablet (Calcium Carbonate/Vitamin D3) 1 Each Tablet 1 Tab PO DAILY Atorvastatin Calcium 10 Mg Tablet 10 Mg PO QHS Aspir-Low (Aspirin) 81 Mg Tablet.dr 81 Mg PO DAILY Diagnosis: Problems: (1) Impulse control disorder (2) Dementia in Alzheimer's disease with delusions (3) Dementia in Alzheimer's disease with depression (4) Anxiety disorder AURELIANO MCCAULEY MD Mar 04, 2017 08:33
--- NOTE | 2017-03-04 19:06 | DS ---
DATE OF DISCHARGE: 03/03/2017 DISCHARGE SUMMARY/PSYCHIATRIC PROGRESS NOTE This is a late entry for 03/03 and covers the elements not covered in my initial note of 03/03. REASON FOR ADMISSION: Please refer to the admission history for details. Briefly, the patient is a 76-year-old female who was referred to us from the Emergency Room at [facility] where she presented from her long-term placement at [facility] at the [facility] on account of worsening confusion, forgetfulness, memory deficits and after the patient was making threatening statements towards family and suicidal statements. She was having marked waxing and waning of her mood, increased paranoia, agitation, sleep and appetite changes. She had failed outpatient psychiatric interventions resulting in this referral. Behaviors were deemed dangerous and unmanageable at the [facility]. SIGNIFICANT FINDINGS AND CLINICAL COURSE: Following admission, the patient was seen daily individually by myself, followed medically per Dr. Godoy/Dr. Torres. She is somewhat forgetful for short term events, but for other things she was reasonably oriented. She is quite paranoid, suspicious of her family, minimizes her own deficits with limited insight and marginal judgment of the consequent of memory deficits. Adjustments were made in her psychotropics and she seemed to respond to a combination of Seroquel 50 mg b.i.d., melatonin 9 mg at bedtime, Zyprexa p.r.n., Lexapro 5 mg a day for mood, anxiety symptoms, Aricept 10 mg a day, Xanax 0.25 mg t.i.d. p.r.n. anxiety. Gradually mood appeared to improve. She was much less paranoid, suspicious, more agreeable with her family and appropriate decisions about placement required for herself. CONDITION ON DISCHARGE: Improved. REVIEW OF SYSTEMS: Prior to discharge, 03/03/2017, no CV, , pulmonary, eye, ENT system symptoms on review. Reliability fair. MENTAL STATUS EXAM: Oriented to herself. Recent memory is impaired, though insight was much improved. Judgment was improved. No active psychotic symptoms, suicidal or homicidal ideation. Attention span was better. Mood and affect were much improved. She is pleasant, smiling, verbal, open, forthcoming and insightful. 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 Rest diagnosis unchanged as above. DISCHARGE MEDICATIONS: Please refer to the [facility]. Outpatient psychiatric and medical followup back at [place]. Time for discharge day management greater than 30 minutes. MAN Malena MCCAULEY MD DR: CORY/harinder JOB#: [id number] / [id number]
== END 2017-03-03 13:39 | disposition home or self-care (01) | DRG 884 ==
LOC: GEROPSY 18:20
PROVIDERS: ADMIT Psychiatry & Neurology Psychiatry; ATTEND Psychiatry & Neurology Psychiatry
DX: F01.50 Vascular dementia, unspecified severity, without behavioral disturbance, psychotic disturbance, mood disturbance, and anxiety (principal); R45.851 Suicidal ideations; G30.0 Alzheimer's disease with early onset; F02.80 Dementia in other diseases classified elsewhere, unspecified severity, without behavioral disturbance, psychotic disturbance, mood disturbance, and anxiety; F31.60 Bipolar disorder, current episode mixed, unspecified; I34.1 Nonrheumatic mitral (valve) prolapse; F41.9 Anxiety disorder, unspecified; F63.9 Impulse disorder, unspecified; Z96.659 Presence of unspecified artificial knee joint; K59.09 Other constipation; H91.90 Unspecified hearing loss, unspecified ear; E78.5 Hyperlipidemia, unspecified; M54.5 Low back pain; M47.9 Spondylosis, unspecified; G89.29 Other chronic pain; E03.9 Hypothyroidism, unspecified; Z66 Do not resuscitate; Z96.649 Presence of unspecified artificial hip joint; Z80.1 Family history of malignant neoplasm of trachea, bronchus and lung; Z87.891 Personal history of nicotine dependence; Z79.899 Other long term (current) drug therapy; Z98.42 Cataract extraction status, left eye; Z98.41 Cataract extraction status, right eye
CPT/HCPCS: 36415; 70450; 80053; 80061; 82306; 82607; 83036; 83540; 83550; 83735; 84436; 84443; 84480; 85025; 86592; 86593